=== PATIENT | female | born 1950 | race Caucasian/White ===

== ENCOUNTER → 2017-05-21 10:42 | Outpatient (CLI) | payer MEDICARE, OTHER, SELFPAY ==
--- NOTE | 2017-05-21 11:03 | HPBI_ITS ---
MAMMOGRAPHY - BILATERAL SCREENING REASON FOR EXAM: Female, 66 years old. Routine annual screening examination. PERTINENT HISTORY: Non-contributory. TECHNIQUE: Digital bilateral breast shine (3D mammographic acquisition) in the CC and MLO projections. 2-D mediolateral oblique (MLO) and craniocaudad (CC) views of both breasts were obtained. CAD: Full Field Digital Mammography with Computer Added Detection was performed. COMPARISON: Comparison is made with prior examination dated May 20, 2016 and May 08, 2014. FINDINGS: Breast Composition: The breasts are almost entirely fatty. There are no dominant masses or suspicious calcifications. No other significant abnormalities are identified. There has been no significant change since the prior study. HPBI/SCREENING MAMM (CAD), BILAT IMPRESSION: Stable bilateral screening mammogram. Yearly follow-up mammogram recommended. (A) ASSESSMENT CATEGORY: BIRADS Category 1: Negative. A letter regarding these results will be sent to the patient by the facility within 30 days. Approximately 10% of breast cancers are not detected by mammography. A normal mammogram should not delay biopsy of a clinically suspicious abnormality. [id number] Electronically Signed: Serafin Braun MD at 13:06 EDT Tel [phone], Service support ,
== END ==
PROVIDERS: Family Provider Family Medicine; PCP Family Medicine; Visit Provider Family Medicine
DX: Z12.31 Encounter for screening mammogram for malignant neoplasm of breast (principal)
CPT/HCPCS: 77063; 77067

== ENCOUNTER → 2017-07-13 10:34 | Outpatient (CLI) | payer MEDICARE, OTHER, SELFPAY ==
--- NOTE | 2017-07-13 10:41 | RAD_ITS ---
STUDY: X-RAY - RIGHT CALCANEUS REASON FOR EXAM: Female, 67 years old. lump on the back of right heel, painful TECHNIQUE: 2 view(s) of the calcaneus were obtained. COMPARISON: None. FINDINGS: Normal visualized calcaneus. There is a plantar calcaneal spur. RAD/Calcaneus min 2 Views IMPRESSION: There is a calcaneal spur. Electronically Signed: Gerardo Rivas MD at 19:34 EDT , Service support ,
== END ==
PROVIDERS: Family Provider Family Medicine; PCP Family Medicine; Visit Provider Family Medicine
DX: M76.61 Achilles tendinitis, right leg (principal)
CPT/HCPCS: 73650

== ENCOUNTER 2017-08-13 13:00 | Outpatient (RCR) | payer MEDICARE, OTHER, SELFPAY ==
--- NOTE | 2017-07-23 15:41 | HP.PTEVAL_ITS ---
Patient's Visit Information SHANIQUA KRUEGER is a 67 year old F referred to Physical Therapy by Vamshi Nguyễn with a diagnosis of RIGHT ACHILLES TENDONITIS/OSIS. Date of Evaluation: 07/23/17 Physical Therapist: Samantha Nieto - Visit Plan Frequency: 2-3x /Week Duration: 4-6 Weeks Plan: GOES BY [facility]. CONSIDER DISCUSSING DRY NEEDLING WITH PATIENT AND CONSIDER DRY NEEDLING CONSULT. TRY RIGHT ANKLE US. GAIT TRAINING - CANE IF NEEDED. POSTURE CORRECTION/STRENGTHENING, INSTRUCTION IN APPROPRIATE BODY MECHANICS AND ACTIVITY MODIFICATIONS. CORE STRENGTH AND STABILITY TRAINING. SONAL LE ROM, STRETCHING AND STRENGTHENING. HEP INSTRUCTION. - Subjective Subjective: Diagnosis: RIGHT ACHILLES TENDONITIS/OSIS. Work/Leisure: RETIRED. Disability: NO. Present symptoms: RIGHT HEEL/ACHILLES TENDON AREA LOCALIZED PAIN. PATIENT DENIES FOOT AND LEG PAIN. Present since: OVER 6 MONTHS. Pain Scale: Worst - 6/10 Least - 1/10. Currently: 0/10. Commenced as a result of: NO APPARENT REASON. Symptoms at onset: SAME. Worse : STEPS, AFTER WALKING FOR EX, PROLONGED HOUSEWORK, PROLONGED COOKING IN KITCHEN. Better: SITTING AND ELEVATION. Disturbed sleep: NO. Previous history/Previous treatment: NONE. UNREMARKABLE EXCEPT PATIENT RECALLS MAYBE HAVING PLANTAR FASCITIS IN THE PAST. SHE SAW DR. CANO AND WAS GIVEN STRETCHES AND SHE GOT ORTHOTICS. NO LONGER WEARS THE ORTHOTICS. THIS WAS A FEW YEARS AGO AND THE PAIN SEEMED TO GO AWAY. SHE REALLY ISN'T EVEN SURE IF IT WAS HER RIGHT OR LEFT FOOT. PATIENT REPORTS SHE HAS SEEN DR. NGUYỄN TWICE FOR THIS SO FAR. HE INITIALLY GAVE HER AN AIR BOOT THAT SHE STATES SHE ONLY WORE TO GO [employer] OR LIKEWISE. SHE DID NOT WEAR IT AROUND THE HOUSE ADVISED BY DR. NGUYỄN. SHE REPORTS SHE WORE IT TO [employer] THE OTHER DAY BUT SHE DID NOT WEAR IT HERE TODAY. SHE STATES THAT ABOUT 2 WEEKS AGO WHEN HER ACHILLES REALLY SWELLED UP THE BOOT SEEMED TO HELP THE SWELLING GO DOWN. Gait: PATIENT REPORTS THAT SHE SEEMS TO LIMP ALL THE TIME NOW ON THE RIGHT FOOT BECAUSE SHE FEELS IT WITH EVERY STEP. Accidents: NO. Unexplained weight loss: NO. Imaging: RECENT RIGHT FOOT X-RAYS: FINDINGS: Normal visualized calcaneus. There is a plantar calcaneal spur. PMH/Recent major surgery: PULMONARY FIBROSIS. BLADDER DYSFUNCTION. HTN. HYPOTHYROIDISM. OTHER: PATIENT IS LEAVING FOR A TRIP IN ONE MONTH. GOING TO [place]. - Objective Sitting/Standing Posture: POOR. Lordosis: REDUCED. Lateral shift: NO. Relevant shift: N/A. Active Correction of posture: NE. Other Observations: INDEP GAIT INTO PT WITHOUT ANY ASSISTIVE DEVICES WITH A MILD LIMP ON THE RIGHT LE. Motor deficit: SONAL LE STRENGTH IS WFL. PATIENT IS EVEN ABLE TO DO SONAL HEEL RAISING X 3 BUT PROVOKES MILD RIGHT ACHILLES PAIN. Sensory deficit: SONAL LE LIGHT TOUCH SENSATION IS INTACT AND SYMMETRICAL. ROM deficit: RIGHT ANKLE DORSIFLEXION MILDLY LIMITED AND PAIN AT THE END OF THE AVIAILABLE RANGE. Lumbar mvmt loss: flex - MOD. ext - TABITHA. R SG - MOD. L SG - MOD. PATIENT REPORTS STIFFNESS BUT NO PAIN IN BACK OR LE'S WITH TESTING. Core strength: POOR. Palpation: TENDERNESS WITH LIGHT PALPATION ALONG SWOLLEN AREA OF ACHILLES TENDON RIGHT NEAR INSERTION. - Goals Goal 1:: DECREASE C/O RIGHT ACHILLES PAIN Goal Time Frame: 4-6 Weeks Goal 2:: IMPROVE STANDING, WALKING, STAIR CLIMBING, ADL AND RECREATIONAL FUNCTION Goal Time Frame: 4-6 Weeks Goal 3:: INDEP HEP Goal Time Frame: 4-6 Weeks - Rehabilitation Potential Rehabilitation Potential: Fair - Anticipated Interventions Patient/Client Instruction: Educate patient on: Condition, Plan of Care, Risk Factors, Benefits of Fitness Program For the Purpose of:: To improve self management Therapeutic Exercise to Include: Strength training, Body mechanics, Postural training, Flexibilty training, Passive ROM, Active ROM For the Purpose of:: To decrease pain, To improve ability of physical actions for home/community/work/leisure, To improve gait and locomotor functions Manual Therapy Techniques to Include: Functional dry needling, Soft tissue mobilization For the Purpose of:: To decrease pain, To increase ROM Cryotherapy (ice pack, ice massage): Yes Thermo therapy (hot pack): Yes Ultrasound (thermal/non thermal): Yes For the Purpose of:: To decrease pain, To decrease swelling/inflammation, To increase ROM Thank you for the opportunity to evaluate your patient. For Medicare and Medicare HMO plans, please review the plan of care and approve it. It will need to be FAXED BACK to us at [phone] for Medicare purposes. Please let me know if there are questions or concerns regarding this plan of care. Physician Signature: Date:
--- NOTE | 2017-08-13 13:00 | DT_ITS ---
This patient was seen during an EMR downtime August 09, 2017 - August 16, 2017. This patient may have a combination of paper and electronic documentation or all paper documentation. All documentation is viewable within the e-chart portion of [facility] for each patient visit.
--- NOTE | 2017-09-05 12:05 | HP.PTDCSUM ---
HP - PT D/C Summary It has been my pleasure to treat SHANIQUA KRUEGER under orders from Vamshi Ngyuễn, for the diagnosis of RIGHT ACHILLES TENDONITIS/OSIS for a total of 8 visit(s). Discharge Date: 08/13/17 Please see the following information for a summary of their discharge status. - Subjective Subjective: PATIENT REPORTS THE US REALLY HELPS A LOT. LEAVING NEXT WEDNESDAY FOR VACATION. USED NEWLY PRESCRIBED ANTI-INFLAM CREAM (DR. NGUYỄN) ONCE AND SHE DIDN'T NOTICE A DIFFERENCE BUT WILL KEEP TRYING. PT REPORTS EX'S LAST SESSION HELPED A LOT. - Pain R achilles Pain Intensity (Out of 10): 0 - Overall Improvement % Improvement: 75 - Objective Objective/Function: MILD EDEMA AND TENDERNESS PRESENT NEAR RIGHT ACHILLES INSERTION. SINGLE LEG HEEL RAISE STILL PAIN LIMITED. =8 DEG RIGHT ANKLE ACTIVE DORSIFLEXION. PATIENT IS INDEP WITH HEP. LEFS HAS IMPROVED FROM 47 TO 67. Due to electronic downtime procedure, the information from August 09 2017 through August 15 2017 was electronically scanned into the medical record - Goals Goal 1:: DECREASE C/O RIGHT ACHILLES PAIN Goal Progress: Goal Met Goal 2:: IMPROVE STANDING, WALKING, STAIR CLIMBING, ADL AND RECREATIONAL FUNCTION Goal Progress: Goal Met Goal 3:: INDEP HEP Goal Progress: Goal Met - Plan Plan: D/C AT PATIENTS REQUEST - LEAVING FOR VACATION. WILL FOLLOW UP WITH DR. NGUYỄN UPON RETURN NEEDED. - D/C Information If there are questions or concerns regarding this patient's physical therapy, please feel free to call me at [phone]. Thank you for the referral of this patient. Sincerely, Samantha Nieto
== END 2017-08-13 19:00 | disposition home or self-care (01) ==
LOC: PT 13:00
PROVIDERS: Family Provider Family Medicine; PCP Family Medicine; Visit Provider Family Medicine
DX: M76.61 Achilles tendinitis, right leg (principal)
CPT/HCPCS: 97035; 97110; 97140; 97162; 97530

== ENCOUNTER → 2018-01-17 07:19 | Outpatient (CLI) | payer MEDICARE, OTHER, SELFPAY ==
[2018-01-17 10:33] LABS: Hemoglobin 14.7 g/dl (12.0-15.0); Mean Corp Hgb Conc 32.7 g/gl (32-36); Mean Corpuscular Hgb 28.8 pg (27.0-32.0); Mean Corpuscular Volume 88.1 fL (81-99); Mean Platelet Vol. 12.8 fl (6.2-12.0); Platelet Count 179 K/mm3 (150-450); RBC Distribution Width CV 13.5 % (11.6-14.6); RBC Distribution Width SD 43.3 fl (35.1-43.9); Red Blood Count 5.11 M/mm3 (4.2-5.4); White Blood Count 9.7 K/mm3 (4.4-11.0)
[2018-01-17 10:41] LABS: Scan Indicated on CBC? Y/N NO
[2018-01-17 10:46] LABS: Vitamin D,25 Hydroxy 27.5 ng/mL (29.95-100.01)
[2018-01-17 10:48] LABS: Erythrocyte Sedimentation Rate 10 mm/hr (0-30)
[2018-01-17 10:50] LABS: BUN 22 mg/dL (7-18); Creatinine, Serum 1.26 mg/dL (0.55-1.02); EST Glomerular Filtration Rate 45 mL/min (>60); Glucose 88 mg/dL (74-106)
[2018-01-17 10:51] LABS: ALB/GLOB Ratio 0.9 RATIO (0.9-2.4); AST(SGOT) 12 U/L (15-37); Alanine Aminotransfer ALT/SGPT 26 U/L (13-56); Albumin, Serum 3.5 g/dL (3.2-5.0); Alkaline Phosphatase 103 U/L (45-117); Anion Gap 9 (5-15); BUN/Creat Ratio 17.5 RATIO (10-20); Calcium,Total 8.7 mg/dL (8.5-10.1); Chloride 102 mmol/L (98-107); Cholesterol 171 mg/dL (200); Est Glom Filt Rate - Afr Amer 54 mL/min (>60); Globulin 3.8 g/dL (2.2-4.2); High Density Lipoprotein 47 mg/dL; Potassium 3.4 mmol/L (3.5-5.1); Protein, Total 7.3 g/dL (6.4-8.2); Rheumatoid Factor < 10.0 IU/mL (<15); Sodium Level 142 mmol/L (136-145); T4 Free Direct 1.11 ng/dL (0.76-1.46); Thyroid Stim Hormone (TSH) 2.51 uIU/mL (0.358-3.74); Triglycerides 131 mg/dL; Very Low Density Lipoprotein 26 mg/dL (5-40)
[2018-01-19 10:19] LABS: ANTINUCLEAR ANTIBODIES DIRECT Negative (Negative)
== END ==
PROVIDERS: Family Provider Family Medicine; PCP Family Medicine; Referring Provider Family Medicine; Visit Provider Family Medicine
DX: I10 Essential (primary) hypertension (principal); M25.50 Pain in unspecified joint; E03.9 Hypothyroidism, unspecified; E55.9 Vitamin D deficiency, unspecified
CPT/HCPCS: 36415; 80053; 80061; 82306; 84439; 84443; 85027; 85652; 86038; 86140; 86431

== ENCOUNTER → 2018-10-04 15:56 | Outpatient (CLI) | payer MEDICARE, OTHER, SELFPAY ==
--- NOTE | 2018-10-04 16:03 | RAD_ITS ---
STUDY: X-RAY CHEST REASON FOR EXAM: Female, 68 years old. TECHNIQUE: COMPARISON: None. FINDINGS: There is a background of chronic interstitial changes especially in the right lung base. No acute findings in the lungs. The heart is normal in size. Degenerative changes of the thoracic spine. Normal visualized ribs, clavicles, and shoulders. There is no demonstrated abnormality of the visualized soft tissue structures of the upper abdomen. RAD/Chest PA and Lateral IMPRESSION: A background of chronic interstitial changes especially in the right lung base. No acute findings in the lungs Electronically Signed: Dakota Alfaro MD at 5:10 EDT Tel , Service support ,
== END ==
PROVIDERS: Family Provider Family Medicine; PCP Family Medicine; Referring Provider Family Medicine; Visit Provider Family Medicine
DX: R11.10 Vomiting, unspecified (principal)
CPT/HCPCS: 71046

== ENCOUNTER → 2018-10-19 16:04 | Outpatient (CLI) | payer MEDICARE, OTHER, SELFPAY ==
[2018-10-19 17:42] LABS: Absolute Neutrophil Count 5.7 X10^3/uL (2.0-7.7); Basophil# 0.08 X10^3/uL; Eosinophil# 0.41 X10^3/uL; Eosinophils% 4.9 % (0-5); Hematocrit 44.1 % (37-47); Hemoglobin 14.4 g/dL (12.0-15.0); Mean Corp Hgb Conc 32.7 g/dL (32-36); Mean Corpuscular Hgb 28.9 pg (27.0-32.0); Mean Corpuscular Volume 88.4 fL (81-99); Mean Platelet Vol. 13.3 fl (6.2-12.0); Monocyte# 0.55 X10^3/uL; Monocyte% 6.5 % (0-10); NRBC Flagged by Analyzer 0 % (0-5); Neutrophil # 5.71 X10^3/uL (2.7-7.7); Neutrophil % 67.9 % (47-70); Platelet Count 159 K/mm3 (150-450); RBC Distribution Width CV 13.1 % (11.6-14.6); RBC Distribution Width SD 42.5 fl (35.1-43.9); Red Blood Count 4.99 M/mm3 (4.2-5.4); White Blood Count 8.4 K/mm3 (4.4-11.0)
[2018-10-19 17:51] LABS: ALB/GLOB Ratio 0.9 RATIO (0.9-2.4); AST(SGOT) 13 U/L (15-37); Alanine Aminotransfer ALT/SGPT 22 U/L (13-56); Albumin, Serum 3.2 g/dL (3.2-5.0); Alkaline Phosphatase 92 U/L (45-117); Anion Gap 7 (5-15); BUN 20 mg/dL (7-18); BUN/Creat Ratio 19.8 RATIO (10-20); Chloride 105 mmol/L (98-107); Creatinine, Serum 1.01 mg/dL (0.55-1.02); EST Glomerular Filtration Rate 58 mL/min (>60); Est Glom Filt Rate - Afr Amer 70 mL/min (>60); Globulin 3.6 g/dL (2.2-4.2); Glucose 107 mg/dL (74-106); Potassium 3.9 mmol/L (3.5-5.1); Protein, Total 6.8 g/dL (6.4-8.2); Sodium Level 141 mmol/L (136-145)
[2018-10-19 19:21] LABS: Differential Comment SCANNED; Platelet Morphology LARGE; Red Cell Morphology NORM C+C NORMAL (NORM C&C)
[2018-10-19 19:22] LABS: Platelet Estimate ADEQUATE (ADEQ)
[2018-10-23 11:57] LABS: ANTINUCLEAR ANTIBODIES DIRECT Negative (Negative)
== END ==
PROVIDERS: Family Provider Family Medicine; PCP Family Medicine; Referring Provider Family Medicine; Visit Provider Family Medicine
DX: R79.82 Elevated C-reactive protein (CRP) (principal); E03.9 Hypothyroidism, unspecified
CPT/HCPCS: 36415; 80053; 84403; 85025; 86038; 86140

== ENCOUNTER → 2018-12-13 15:22 | Outpatient (CLI) | payer MEDICARE, OTHER, SELFPAY ==
--- NOTE | 2018-12-13 15:26 | RAD_ITS ---
STUDY: X-RAY CHEST REASON FOR EXAM: Female, 68 years old. Cough TECHNIQUE: PA and lateral views of the chest. COMPARISON: Previous study of 10/04/2018 FINDINGS: There are mild chronic fibrotic changes of the lung bases. There is no demonstrated pleural abnormality. Normal size heart. Normal mediastinum and donald. Normal visualized pulmonary arteries. Normal visualized aortic arch and descending thoracic aorta. There are diffuse degenerative changes of the visualized thoracic spine. Normal visualized ribs, clavicles, and shoulders. There is no demonstrated abnormality of the visualized soft tissue structures of the upper abdomen. RAD/Chest PA and Lateral IMPRESSION: Mild chronic fibrotic changes of the lung bases. Degenerative changes of the thoracic spine. No acute cardiopulmonary disease process is seen. Chest findings are stable in the interval. Electronically Signed: Tanmay Payne MD at 17:59 EDT , Service support ,
[2018-12-13 17:47] LABS: Absolute Neutrophil Count 5.3 X10^3/uL (2.0-7.7); Basophil# 0.07 X10^3/uL; Basophil% 0.9 % (0-1); Eosinophil# 0.53 X10^3/uL; Eosinophils% 6.9 % (0-5); Hematocrit 41.2 % (37-47); Hemoglobin 13.4 g/dL (12.0-15.0); Lymphocyte % 15.7 % (19-41); Mean Corp Hgb Conc 32.5 g/dL (32-36); Mean Corpuscular Hgb 28.9 pg (27.0-32.0); Mean Corpuscular Volume 88.8 fL (81-99); Mean Platelet Vol. 12.6 fl (6.2-12.0); Monocyte# 0.47 X10^3/uL; Monocyte% 6.1 % (0-10); NRBC Flagged by Analyzer 0 % (0-5); Neutrophil # 5.33 X10^3/uL (2.7-7.7); Neutrophil % 69.7 % (47-70); Platelet Count 172 K/mm3 (150-450); RBC Distribution Width CV 13.3 % (11.6-14.6); RBC Distribution Width SD 43.3 fl (35.1-43.9); Red Blood Count 4.64 M/mm3 (4.2-5.4); White Blood Count 7.7 K/mm3 (4.4-11.0)
[2018-12-13 17:58] LABS: BNP,B-Type NATRIURETIC PEPTIDE 179.2 pg/mL (0-100)
[2018-12-13 18:05] LABS: ALB/GLOB Ratio 0.9 RATIO (0.9-2.4); AST(SGOT) 17 U/L (15-37); Alanine Aminotransfer ALT/SGPT 29 U/L (13-56); Albumin, Serum 3.3 g/dL (3.2-5.0); Alkaline Phosphatase 101 U/L (45-117); Anion Gap 5 (5-15); BUN 20 mg/dL (7-18); BUN/Creat Ratio 18.5 RATIO (10-20); Chloride 103 mmol/L (98-107); Creatinine, Serum 1.08 mg/dL (0.55-1.02); EST Glomerular Filtration Rate 53 mL/min (>60); Est Glom Filt Rate - Afr Amer 64 mL/min (>60); Ferritin 220 ng/mL (8-252); Globulin 3.6 g/dL (2.2-4.2); Glucose 78 mg/dL (74-106); Iron 41 ug/dL (50-170); Potassium 3.6 mmol/L (3.5-5.1); Protein, Total 6.9 g/dL (6.4-8.2); Sodium Level 139 mmol/L (136-145); Thyroid Stim Hormone (TSH) 2.37 uIU/mL (0.358-3.74)
[2018-12-13 18:33] LABS: Erythrocyte Sedimentation Rate 27 mm/hr (0-30)
== END ==
PROVIDERS: Family Provider Family Medicine; PCP Family Medicine; Referring Provider Family Medicine; Visit Provider Family Medicine
DX: R05 Cough (principal); R06.02 Shortness of breath; I12.9 Hypertensive chronic kidney disease with stage 1 through stage 4 chronic kidney disease, or unspecified chronic kidney disease; N18.9 Chronic kidney disease, unspecified; E03.9 Hypothyroidism, unspecified
CPT/HCPCS: 36415; 71046; 80053; 82306; 82607; 82728; 83540; 83880; 84443; 85025; 85652

== ENCOUNTER → 2018-12-20 14:29 | Outpatient (CLI) | payer MEDICARE, OTHER, SELFPAY ==
[2018-12-20 16:24] LABS: Vitamin B12 381 pg/mL (211-911); Vitamin D,25 Hydroxy 26.2 ng/mL (29.95-100.01)
== END ==
PROVIDERS: Family Provider Family Medicine; PCP Family Medicine; Referring Provider Family Medicine; Visit Provider Family Medicine
DX: R53.83 Other fatigue (principal); E55.9 Vitamin D deficiency, unspecified
CPT/HCPCS: 82306; 82607

== ENCOUNTER → 2018-12-20 15:00 | Outpatient (CLI) | payer MEDICARE, OTHER, SELFPAY ==
--- NOTE | 2018-12-20 15:03 | BI_ITS ---
MAMMOGRAPHY - BILATERAL SCREENING REASON FOR EXAM: Female, 68 years old. Routine annual screening examination. PERTINENT HISTORY: Aunt with breast cancer. TECHNIQUE: Digital bilateral breast aliya (3D mammographic acquisition) in the CC and MLO projections. 2-D mediolateral oblique (MLO) and craniocaudad (CC) views of both breasts were obtained. CAD: Full Field Digital Mammography with Computer Added Detection was performed. COMPARISON: Comparison is made with prior studies dated May 21, 2017 and May 20, 2016. FINDINGS: Breast Composition: The breasts are almost entirely fatty. There are no dominant masses or suspicious calcifications. No other significant abnormalities are identified. There has been no significant change since the prior study. BI/SCREEN MAMM (CAD) W/ALIYA BILAT IMPRESSION: Stable bilateral screening mammogram. Yearly follow-up mammogram recommended. (A) ASSESSMENT CATEGORY: BIRADS Category 1: Negative. A letter regarding these results will be sent to the patient by the facility within 30 days. Approximately 10% of breast cancers are not detected by mammography. A normal mammogram should not delay biopsy of a clinically suspicious abnormality. [id number] Electronically Signed: Serafin Braun, at 8:37 EDT , Service support ,
--- NOTE | 2018-12-20 15:07 | BD_ITS ---
STUDY: DUAL ENERGY X-RAY ABSORPTIOMETRY / DXA REASON FOR EXAM: Female, 68 years old. Early menopause. No loss of height. TECHNIQUE: Bone Mineral Density (BMD) measurements of lumbar spine and bilateral hips were obtained. COMPARISON: Comparison is made with prior study dated May 08, 2014. FINDINGS: Lumbar Spine (L1-L4): g/cm2 (1.583) / T-score (3.5) / Z-score (5.2) Findings are suggestive of normal bone density with a low fracture risk. Left Femur Total: g/cm2 (1.274) / T-score (2.1) / Z-score (3.6) Left Femoral Neck: g/cm2 (1.063) / T-score (0.2) / Z-score (1.9) Right Femur Total: g/cm2 (1.283) / T-score (2.2) / Z-score (3.7) Right Femoral Neck: g/cm2 (1.061) / T-score (0.2) / Z-score (1.9) The T-Scores on the most recent prior examination were: Lumbar Spine (L1-L4): There has been improvement of bone density since the previous examination. Left Femur Total: which represents a worsening of 3%. Right Femur Total: which represents a worsening of 1.5%. BD/Dexa Bone Density Study IMPRESSION: The patient is considered normal as outlined below according to World Malcolm Organization (WHO) criteria with a low fracture risk. There has been worsening of bone density since the previous examination. Reference Information: The T-score is the number of standard deviations above or below the standard which is normal for young adults at their peak bone mineral density. The World Health Organization (WHO) interprets the T-scores as follows: Above -1 Normal bone density Between -1 and -2.5 Osteopenia Equal to / or below -2.5 Osteoporosis As a practical clinical guideline, osteopenia may be graded as follows: Mild -1 through -1.5 Moderate -1.6 through -2.0 Severe -2.1 through -2.4 The Z-score is the number of standard deviations above or below age-matched controls. A Z-score of less than -1.5 would be considered abnormal. References: 1. NIH Osteoporosis and Related Bone Diseases http://www.osteo.org 2. International Society for Clinical Densitometry http://www.iscd.org 3. National Osteoporosis Foundation http://www.nof.org Electronically Signed: Serafin Braun, at 10:38 EDT , Service support ,
== END ==
PROVIDERS: Family Provider Family Medicine; PCP Family Medicine; Referring Provider Family Medicine; Visit Provider Family Medicine
DX: Z12.31 Encounter for screening mammogram for malignant neoplasm of breast (principal); Z78.0 Asymptomatic menopausal state; R53.83 Other fatigue; E55.9 Vitamin D deficiency, unspecified
CPT/HCPCS: 77063; 77067; 77080; 82306; 82607

== ENCOUNTER → 2019-01-03 | Outpatient (CLI) | payer MEDICARE, OTHER, SELFPAY ==
--- NOTE | 2019-01-03 07:27 | CT_ITS ---
STUDY: CT CHEST WITH CONTRAST REASON FOR EXAM: Female, 68 years old. Dyspnea RADIATION DOSAGE (If Supplied By Facility): CTDIvol = ( 13.38 ) mGy, DLP = ( 584.44 ) mGycm TECHNIQUE: Transaxial imaging was performed following intravenous administration of IV Isovue 250 100. Individualized dose optimization techniques were used for this CT. COMPARISON: None. FINDINGS: The lungs are mildly hyperaerated with by basilar mild fibrosis and peripheral blebs. There is no demonstrated pleural abnormality. Normal heart and pericardium. Normal mediastinum. Normal hilar regions. Normal enhanced pulmonary arteries. Normal aorta arch and descending thoracic aorta. Degenerative vertebral changes. Fatty changes in the liver with up to 3.1 cm cysts. Small hiatal hernia. CT/Chest WITH Contrast IMPRESSION: Chronic changes of the lung bases with fibrotic changes and blebs. Fatty hepatic changes. Hepatic cysts. Electronically Signed: John Hagen DO at 19:39 EDT Tel [phone], Service support ,
--- NOTE | 2019-01-03 08:42 | ECHOD_ITS ---
Reason For Study: Dyspnea Procedure This was a 2D Doppler, Color Flow transthoracic echocardiogram. The exam was of adequate technical quality. Exam performed in department. Left Ventricle Normal LV size. Left ventricular systolic function is normal. The estimated ejection fraction is 65 %. There is evidence of diastolic dysfunction. No regional wall motion abnormalities noted. Right Ventricle Normal RV size. Normal systolic function. Atria The left atrium is moderately enlarged. Normal right atrium. No doppler evidence for ASD. Mitral Valve There is no mitral annular calcification. Normal mitral valve. Mild (1+) mitral valve insufficiency. Tricuspid Valve Normal tricuspid valve. Trivial tricuspid valve insufficiency. Right ventricular systolic pressure estimated to be 38 mmHg. Aortic Valve Trisinus/trileaflet aortic valve. Mild diffuse aortic valve thickening. Pulmonic Valve The pulmonic valve is not well visualized. Great Vessels Normal sized aortic root. Pericardium/Pleural No pericardial effusion. MMode/2D Measurements & Calculations LVIDd: 4.3 cm IVSd: 0.93 cm Ao root diam: 3.1 cm LVIDs: 2.5 cm LVPWd: 1.1 cm LA dimension: 4.2 cm RVDd: 3.8 cm FS: 40.4 % LAV(MOD-bp): 64.5 ml LA A4 area: 21.9 cm2 RA A4 area: 12.3 cm2 LAV(MOD-bp) Indexed: 33.5 ml/m2 LAV(MOD-sp2): 60.9 ml LAV(MOD-sp4): 68.6 ml Time Measurements MV dec time: 0.26 sec Doppler Measurements & Calculations MV E max david: 54.4 cm/sec Lat Peak E' David: 8.0 cm/sec Med Peak E' David: 6.8 cm/sec MV A max david: 66.3 cm/sec E/E' lat: 6.8 E/E' med: 8.0 MV E/A: 0.82 MV V2 max: 69.8 cm/sec MV P1/2t max david: 59.3 cm/sec Ao V2 max: 99.7 cm/sec MV max P.0 mmHg MV P1/2t: 128.8 msec Ao max P.0 mmHg MV V2 mean: 42.1 cm/sec MV dec slope: 134.8 cm/sec2 MV mean P.80 mmHg MVA(P1/2t): 1.7 cm2 MV V2 VTI: 23.3 cm LV V1 max: 75.4 cm/sec MR max david: 601.8 cm/sec PA V2 max: 72.5 cm/sec LV V1 max P.3 mmHg MR max P.9 mmHg MR mean david: 478.2 cm/sec MR mean P.9 mmHg MR VTI: 240.7 cm TR max david: 296.6 cm/sec TR max P.2 mmHg Interpretation Summary Left ventricular systolic function is normal. The estimated ejection fraction is 65 %. The left atrium is moderately enlarged. Mild (1+) mitral valve insufficiency. Trivial tricuspid valve insufficiency. Mild diffuse aortic valve thickening. Right ventricular systolic pressure estimated to be 38 mmHg c/w pulmonary hypertension. There is evidence of diastolic dysfunction. Ordering Physician: Cecil Arriola Referring Physician: Cecil Arriola Performed By: Houston Castillo RCS
--- NOTE | 2019-01-03 15:08 | PFTCOMP_ITS ---
COMPLETE PULMONARY FUNCTION TEST INTERPRETATION Brief HPI: Patient is a 68 year old female, currently under the care of Dr. Arriola, who presents to [facility] for complete pulmonary function tests secondary to diagnosis of dyspnea. Respiratory therapist reports good effort and reproducible results. Interpretation: Forced expiration spirometry shows no large airways obstructive ventilatory defect with an FEV1 of 102% predicted. There is no significant bronchodilator response by strict ATS criteria. Spirograms are of good quality and plateau normally. The respiratory flow volume loop shows decreased expiratory flow rates at all lung volumes consistent with airway obstruction. Lung volumes by body plethysmography show a normal total lung capacity at 4.03 L, 91% predicted. All other lung volumes are within normal limits. Diffusion capacity by carbon monoxide is decreased at 66% predicted. The airway resistance is normal. Compared to previous pulmonary function tests from 10/07/2010, there is been a significant reduction in DLCO by 18%. Impression: Isolated reduction in diffusion capacity consistent with a pulmonary vascular disorder. This has worsened over the last 8 years.
== END | disposition home or self-care (01) ==
LOC: CT 07:24
PROVIDERS: Family Provider Family Medicine; PCP Family Medicine; Referring Provider Family Medicine; Visit Provider Family Medicine
DX: R06.00 Dyspnea, unspecified (principal)
CPT/HCPCS: 71260; 93306; 94060; 94726; 94729; Q9967

== ENCOUNTER → 2019-02-03 12:18 | Outpatient (CLI) | payer MEDICARE, OTHER, SELFPAY ==
[2019-02-03 12:46] VITALS: PULSE 114; PULSE 115; PULSE 118; PULSE 68; PULSE 71; PULSE 84; PULSE 93; PULSE 94; O2SAT 92; O2SAT 93; O2SAT 94; O2SAT 95; O2SAT 96; O2SAT 97
--- NOTE | 2019-02-04 09:21 | PCM.PSN.6M ---
PSN 6 Minute Walk Test - 6 Minute Walk Test 6 Minute Walk Test: 6 Minute Walk Test PSN:6-Minute Walk Test Start: 02/03/19 12:46 Freq: Status: Active Protocol: RESP.6MINW Document 02/03/19 12:46 [facility] (Rec: 02/03/19 12:50 [facility] [id number]) 6 Minute Walk Test Date Performed 02/03/19 Time Performed 12:30 Height 5 ft 2 in Weight: 93.894 kg Weight in Pounds 207.[address]: Rudolph Gates Assistive device used: None Pre-test Oxygen Delivery Method Room Air Pulse Ox (%) 97 Pulse Rate (60-100 beats/min) 68 Dyspnea Ty Scale (0-10) 0 1st minute Oxygen Delivery Method Room Air Pulse Ox (%) 96 Pulse Rate (60-100 beats/min) 84 Dyspnea Ty Scale (0-10) 0 2nd minute Oxygen Delivery Method Room Air Pulse Ox (%) 95 Pulse Rate (60-100 beats/min) 94 Dyspnea Ty Scale (0-10) 1 3rd minute Oxygen Delivery Method Room Air Pulse Ox (%) 94 Pulse Rate (60-100 beats/min) 93 Dyspnea Ty Scale (0-10) 1 4th minute Oxygen Delivery Method Room Air Pulse Ox (%) 94 Pulse Rate (60-100 beats/min) 114 H Dyspnea Ty Scale (0-10) 2 Reported Symptoms Increased Work of Breathing 5th minute Oxygen Delivery Method Room Air Pulse Ox (%) 93 Pulse Rate (60-100 beats/min) 115 H Dyspnea Ty Scale (0-10) 2 Reported Symptoms Increased Work of Breathing 6th minute Oxygen Delivery Method Room Air Pulse Ox (%) 92 Pulse Rate (60-100 beats/min) 118 H Dyspnea Ty Scale (0-10) 2 Reported Symptoms Increased Work of Breathing Post-test Oxygen Delivery Method Room Air Pulse Ox (%) 97 Pulse Rate (60-100 beats/min) 71 Dyspnea Ty Scale (0-10) 0 Full Laps Walked 22 Partial Lap, Number of Tiles Walked 16 Total Distance Walked (ft) 1314 - Interpretation Interpretation: Patient was able to ambulate 1314 feet over the course of 6 minutes on room air with no assistive devices or breaks. The patient did not have any significant desaturation, but did experience tachycardia to 118 bpm. These findings are consistent with deconditioning. - Recommendations Recommendations: No supplemental oxygen is indicated at this time
== END ==
PROVIDERS: Family Provider Family Medicine; PCP Family Medicine; Referring Provider Internal Medicine Critical Care Medicine; Visit Provider Internal Medicine Critical Care Medicine
DX: R06.00 Dyspnea, unspecified (principal)
CPT/HCPCS: 94618

== ENCOUNTER → 2019-04-07 12:21 | Outpatient (CLI) | payer MEDICARE, OTHER, SELFPAY ==
[2019-04-07 14:14] LABS: Rheumatoid Factor < 10.0 IU/mL (<15)
[2019-04-10 21:07] LABS: ANTINUCLEAR ANTIBODIES DIRECT Negative (Negative)
[2019-04-11 16:07] LABS: Cytoplasmic Ab (C-ANCA) <1:20 titer (Neg:<1:20)
[2019-04-12 14:04] LABS: CCP IgG Antibodies 8 units (0-19); Perinuclear Ab (P-ANCA) <1:20 titer (Neg:<1:20)
== END ==
PROVIDERS: PCP Family Medicine; Referring Provider Internal Medicine Critical Care Medicine; Visit Provider Internal Medicine Critical Care Medicine
DX: J84.9 Interstitial pulmonary disease, unspecified (principal)
CPT/HCPCS: 36415; 86038; 86200; 86225; 86235; 86256; 86431

== ENCOUNTER → 2019-05-09 17:58 | Outpatient (CLI) | payer MEDICARE, OTHER, SELFPAY ==
[2019-04-13 12:38] VITALS: BMI 37.8
== END ==
PROVIDERS: PCP Family Medicine; Referring Provider Family Medicine; Visit Provider Family Medicine
DX: N39.0 Urinary tract infection, site not specified (principal)
CPT/HCPCS: 87086; 87088

== ENCOUNTER → 2019-08-03 16:52 | Outpatient (CLI) | payer MEDICARE, OTHER, SELFPAY ==
[2019-04-13 12:38] VITALS: BMI 37.8
--- NOTE | 2019-08-03 16:54 | RAD_ITS ---
STUDY: X-RAY CHEST REASON FOR EXAM: Female, 69 years old. PLEURISY TECHNIQUE: PA and lateral views of the chest. COMPARISON: 12/13/2018 FINDINGS: Chronic interstitial changes in both lung chand without a superimposed acute pulmonary process. There is no demonstrated pleural abnormality. Normal size heart. Normal mediastinum and donald. Normal visualized pulmonary arteries. Normal visualized aortic arch and descending thoracic aorta. There are diffuse degenerative changes of the visualized thoracic spine. Normal visualized ribs, clavicles, and shoulders. There is no demonstrated abnormality of the visualized soft tissue structures of the upper abdomen. RAD/Chest PA and Lateral IMPRESSION: Degenerative changes, as described above. No demonstrated acute cardiopulmonary process. No interval change Electronically Signed: Sean Brizuela MD at 17:12 EDT , Service support ,
== END ==
PROVIDERS: PCP Family Medicine; Referring Provider Family Medicine; Visit Provider Family Medicine
DX: R09.1 Pleurisy (principal)
CPT/HCPCS: 71046

== ENCOUNTER → 2019-08-17 16:45 | Outpatient (CLI) | payer MEDICARE, OTHER, SELFPAY ==
[2019-04-13 12:38] VITALS: BMI 37.8
[2019-08-17 17:44] LABS: Hematocrit 40.5 % (37-47); Hemoglobin 12.9 g/dL (12.0-15.0); Mean Corp Hgb Conc 31.9 g/dL (32-36); Mean Corpuscular Hgb 28.7 pg (27.0-32.0); Mean Corpuscular Volume 90.2 fL (81-99); Mean Platelet Vol. 11.9 fl (6.2-12.0); Platelet Count 290 K/mm3 (150-450); RBC Distribution Width CV 12.4 % (11.6-14.6); RBC Distribution Width SD 40.6 fl (35.1-43.9); Red Blood Count 4.49 M/mm3 (4.2-5.4); White Blood Count 14.5 K/mm3 (4.4-11.0)
[2019-08-17 17:53] LABS: Erythrocyte Sedimentation Rate 97 mm/hr (0-30)
[2019-08-17 18:27] LABS: ALB/GLOB Ratio 0.6 RATIO (0.9-2.4); AST(SGOT) 21 U/L (15-37); Alanine Aminotransfer ALT/SGPT 43 U/L (13-56); Albumin, Serum 2.8 g/dL (3.2-5.0); Alkaline Phosphatase 125 U/L (45-117); Anion Gap 9 (5-15); BUN 14 mg/dL (7-18); BUN/Creat Ratio 11.2 RATIO (10-20); Calcium,Total 9.1 mg/dL (8.5-10.1); Chloride 98 mmol/L (98-107); Creatinine, Serum 1.25 mg/dL (0.55-1.02); EST Glomerular Filtration Rate 45 mL/min (>60); Est Glom Filt Rate - Afr Amer 54 mL/min (>60); Ferritin 988 ng/mL (8-252); Globulin 4.7 g/dL (2.2-4.2); Glucose 82 mg/dL (74-106); Iron 20 ug/dL (50-170); Potassium 3.5 mmol/L (3.5-5.1); Protein, Total 7.5 g/dL (6.4-8.2); Sodium Level 135 mmol/L (136-145); Thyroid Stim Hormone (TSH) 1.53 uIU/mL (0.358-3.74)
[2019-08-17 18:38] LABS: Vitamin D,25 Hydroxy 72.9 ng/mL
[2019-08-18 17:08] LABS: Iron Binding Capacity,Total 345 ug/dL (250-450)
== END ==
PROVIDERS: PCP Family Medicine; Referring Provider Family Medicine; Visit Provider Family Medicine
DX: R53.83 Other fatigue (principal); R06.02 Shortness of breath; E03.9 Hypothyroidism, unspecified; E55.9 Vitamin D deficiency, unspecified; R79.82 Elevated C-reactive protein (CRP); I12.9 Hypertensive chronic kidney disease with stage 1 through stage 4 chronic kidney disease, or unspecified chronic kidney disease; N18.9 Chronic kidney disease, unspecified
CPT/HCPCS: 36415; 80053; 82306; 82728; 83540; 83550; 84443; 84484; 85027; 85652; 86140

== ENCOUNTER → 2019-08-18 16:52 | Outpatient (CLI) | payer MEDICARE, OTHER, SELFPAY ==
[2019-04-13 12:38] VITALS: BMI 37.8
--- NOTE | 2019-08-18 17:03 | CT_ITS ---
STUDY: CTA CHEST REASON FOR EXAM: Female, 69 years old. SOB SINCE WEEKEND, CP INTERMITTENT LEFT SIDE, PAIN ACROSS SHOULDER. RADIATION DOSAGE (If Supplied By Facility): CTDIvol = ( 15.48 ) mGy, DLP = ( 568.36 ) mGycm TECHNIQUE: The examination was performed with the intravenous administration of IV 100mL Isovue-370. Post-processing of the angiographic images was performed, with multiplanar reformation and 3D reconstruction. Individualized dose optimization techniques were used for this CT. COMPARISON: Prior chest radiograph August 03, 2019, December 13, [address] a prior chest CT exam of January 03, 2019 FINDINGS: Normal enhancement of the main pulmonary artery and right and left pulmonary arteries. Normal enhancement of the bilateral peripheral pulmonary arteries. There is no demonstrated pulmonary embolism. Minimal plaque and mild elongation of the thoracic aorta without aneurysm or dissection. Normal cardiac size. Small circumferential pericardial effusion. 1 shotty retrocaval lymph node unchanged from prior exam. Shotty right hilar adenopathy not changed from prior exam. Stable chronic changes of the upper lobes including subpleural cystic changes on the right. Stable subpleural cystic and intraparenchymal cystic changes of the right middle lobe. Stable extensive subpleural cystic changes, bronchial thickening and bullous changes of the right lower lobe.. Stable mild chronic subpleural changes of the lingula. Similar changes at the left lung base with a greater degree of intervening lung opacification and a new small left pleural effusion. Normal chest wall structures. There are degenerative changes of thoracic spine. Stable hepatic cyst. Status post cholecystectomy. CT/CTA Chest W/WO Contrast IMPRESSION: Negative for pulmonary embolus. Mild atherosclerotic plaque of the aorta and mild elongation without aneurysm or dissection. Small pericardial effusion increased from prior exam. Normal cardiac size. Negative for substantial coronary calcifications. Extensive subpleural cystic and bullous changes of the lower lobes, bronchial thickening and a new left pleural effusion. Generalized bronchial thickening. There is a larger degree of intervening lung opacification at the left lung base amongst cystic lung changes which may be atelectasis or early pneumonic process. Stable chronic changes of the upper lung zones. Stable hepatic cyst. Status post cholecystectomy. Electronically Signed: Carmel Triana MD at 18:04 EDT , Service support ,
== END ==
PROVIDERS: PCP Family Medicine; Referring Provider Family Medicine; Visit Provider Family Medicine
DX: R06.02 Shortness of breath (principal)
CPT/HCPCS: 71275; Q9967

== ENCOUNTER → 2019-08-23 12:40 | Outpatient (CLI) | payer MEDICARE, OTHER, SELFPAY ==
[2019-04-13 12:38] VITALS: BMI 37.8
[2019-08-23 16:05] LABS: Erythrocyte Sedimentation Rate 37 mm/hr (0-30)
[2019-08-23 16:09] LABS: Absolute Lymphocyte Count 1.08 X10^3/uL (0.83-4.51); Absolute Neutrophil Count 4.3 X10^3/uL (2.0-7.7); Basophil# 0.04 X10^3/uL; Basophil% 0.6 % (0-1); Eosinophils% 7.5 % (0-5); Hematocrit 39.6 % (37-47); Hemoglobin 12.5 g/dL (12.0-15.0); Lymphocyte # 1.08 X10^3/ul (4.0); Lymphocyte % 16.2 % (19-41); Mean Corp Hgb Conc 31.6 g/dL (32-36); Mean Corpuscular Hgb 28.7 pg (27.0-32.0); Mean Corpuscular Volume 90.8 fL (81-99); Mean Platelet Vol. 11.4 fl (6.2-12.0); Monocyte# 0.55 X10^3/uL; Monocyte% 8.2 % (0-10); NRBC Flagged by Analyzer 0 % (0-5); Neutrophil # 4.33 X10^3/uL (2.7-7.7); Platelet Count 323 K/mm3 (150-450); RBC Distribution Width CV 12.6 % (11.6-14.6); RBC Distribution Width SD 41.5 fl (35.1-43.9); Red Blood Count 4.36 M/mm3 (4.2-5.4); White Blood Count 6.7 K/mm3 (4.4-11.0)
== END ==
PROVIDERS: PCP Family Medicine; Referring Provider Family Medicine; Visit Provider Family Medicine
DX: J18.9 Pneumonia, unspecified organism (principal)
CPT/HCPCS: 36415; 85025; 85652; 86140

== ENCOUNTER → 2019-09-06 12:38 | Outpatient (CLI) | payer MEDICARE, OTHER, SELFPAY ==
[2019-04-13 12:38] VITALS: BMI 37.8
--- NOTE | 2019-09-06 12:44 | ECHOD_ITS ---
Reason For Study: Pericardial Effusion Procedure This was a 2D Doppler, Color Flow transthoracic echocardiogram. Exam performed in department. Left Ventricle Normal size and thickness. The estimated ejection fraction is 65 %. Stage 2 diastolic dysfunction. No regional wall motion abnormalities noted. Right Ventricle Normal size and thickness. Normal systolic function. Atria Normal left atrium. Normal right atrium. Normal atrial septum. Mitral Valve The mitral valve is structurally normal. No prolapse or stenosis seen. Mild (1+) mitral valve insufficiency. Tricuspid Valve Normal tricuspid valve. Trivial tricuspid valve insufficiency. Right ventricular systolic pressure estimated to be 34 mmHg. Aortic Valve Normal aortic valve. Trisinus/trileaflet aortic valve. Pulmonic Valve Normal pulmonic valve. Trivial pulmonic valve insufficiency. Great Vessels Normal aortic root. Normal arch. Normal inferior vena cava. Inferior vena cava collapse with sniff. Pericardium/Pleural No pericardial effusion. MMode/2D Measurements & Calculations LVIDd: 5.2 cm IVSd: 1.0 cm LA dimension: 4.5 cm LVIDs: 3.1 cm LVPWd: 1.2 cm RVDd: 3.3 cm FS: 40.0 % LAV(MOD-bp): 57.6 ml LVAd ap4: 23.6 cm2 SV(MOD-sp4): 42.3 ml LAV(MOD-bp) Indexed: 29.4 ml/m2 EDV(MOD-sp4): 66.2 ml LAV(MOD-sp2): 49.6 ml EDV(sp4-el): 68.9 ml LAV(MOD-sp4): 58.9 ml LVAs ap4: 12.8 cm2 ESV(MOD-sp4): 23.8 ml ESV(sp4-el): 23.9 ml EF(MOD-sp4): 64.0 % EF(sp4-el): 65.3 % SV(sp4-el): 45.0 ml Aortic Valve Planimetry: 2.4 cm2 LA A4 area: 19.8 cm2 RA A4 area: 13.5 cm2 Time Measurements MV dec time: 0.17 sec Doppler Measurements & Calculations MV E max david: 67.2 cm/sec Lat Peak E' David: 8.2 cm/sec Med Peak E' David: 7.3 cm/sec MV A max david: 59.6 cm/sec E/E' lat: 8.2 E/E' med: 9.2 MV E/A: 1.1 MV V2 max: 69.5 cm/sec MV P1/2t max david: 69.5 cm/sec Ao V2 max: 114.7 cm/sec MV max P.9 mmHg MV P1/2t: 43.7 msec Ao max P.3 mmHg MV V2 mean: 40.7 cm/sec Ao V2 mean: 79.0 cm/sec MV mean P.75 mmHg MV dec slope: 465.9 cm/sec2 Ao mean P.8 mmHg MV V2 VTI: 19.5 cm MVA(P1/2t): 5.0 cm2 Ao V2 VTI: 25.8 cm LV V1 max: 91.0 cm/sec MR max david: 471.9 cm/sec PA V2 max: 81.9 cm/sec LV V1 max P.3 mmHg MR max P.1 mmHg LV V1 mean P.7 mmHg MR mean david: 390.8 cm/sec LV V1 mean: 60.7 cm/sec MR mean P.4 mmHg LV V1 VTI: 21.1 cm MR VTI: 183.3 cm PI end-d david: 106.9 cm/sec TR max david: 266.1 cm/sec TR max P.3 mmHg Interpretation Summary The estimated ejection fraction is 65 %. Stage 2 diastolic dysfunction. Mild (1+) mitral valve insufficiency. Trivial tricuspid valve insufficiency. Right ventricular systolic pressure estimated to be 34 mmHg. Compared to echo report dated 01/03/2019, LV function has remained the same, and RVSP has decreased from 38 to 34 mmHg. Ordering Physician: Cecil Arriola Referring Physician: Cecil Arriola Performed By: Houston Castillo RCS
== END ==
PROVIDERS: PCP Family Medicine; Referring Provider Family Medicine; Visit Provider Family Medicine
DX: I31.3 Pericardial effusion (noninflammatory) (principal)
CPT/HCPCS: 93306

== ENCOUNTER → 2019-09-14 06:09 | Outpatient (CLI) | payer MEDICARE, OTHER, SELFPAY ==
[2019-04-13 12:38] VITALS: BMI 37.8
--- NOTE | 2019-09-14 16:03 | STRESSREP ---
Stress Test Report Exercise myocardial perfusion stress test. 69-year-old lady with history of shortness of breath. Stress protocol: Resting EKG demonstrates normal sinus rhythm with a rate of 71 bpm normal intervals are noted resting blood pressure is 132/80 mmHg. Patient exercised according to regular Benedicto protocol for total duration of 3 minutes and 30 seconds. The maximum heart rate attained 136 bpm which was 91% of maximum predicted heart rate the maximum workload was 5.1 metabolic equivalents. The patient maintained sinus rhythm throughout the recording. At rest there were no ST or T wave changes noted to suggest ischemia. At peak exercise nonspecific ST changes were noted we did not meet the criteria for ischemia. Occasional premature ventricular complexes were present. The test was terminated due to dyspnea. The resting blood pressure was 132/80 with a peak blood pressure 180/70 mmHg. Myocardial perfusion protocol. 14.7 mCi of technetium 99m sestamibi was injected at rest. The patient exercised according to regular Benedicto protocol and at peak exercise 44.0 mCi of technetium 99m sestamibi was injected stress images were obtained stress and rest images were reconstructed and compared in the short axis vertical long horizontal long axis. Gated images were also obtained Perfusion SPECT analysis: Review of the stress images demonstrate normal uptake of tracer noted in all areas of the myocardium. The resting images demonstrate normal uptake of tracer noted in all areas of the myocardium. No areas of reversibility are noted suggest ischemia no previous infarct is noted. Gated SPECT analysis: The gated ejection fraction is 60%. Conclusion: Normal exercise myocardial perfusion stress test at a low workload. Preserved ejection fraction. The low workload may affect sensitivity for detection of ischemia.
== END ==
PROVIDERS: PCP Family Medicine; Referring Provider Family Medicine; Visit Provider Family Medicine
DX: I25.10 Atherosclerotic heart disease of native coronary artery without angina pectoris (principal)
CPT/HCPCS: 78452; 93017; A9500; A4216

== ENCOUNTER → 2020-01-03 | Outpatient (CLI) | payer MEDICARE, OTHER, SELFPAY ==
[2019-04-13 12:38] VITALS: BMI 37.8
== END | disposition home or self-care (01) ==
PROVIDERS: PCP Family Medicine; Referring Provider Family Medicine; Visit Provider Family Medicine
DX: N39.0 Urinary tract infection, site not specified (principal)
CPT/HCPCS: 87086; 87088

== ENCOUNTER → 2020-03-13 11:54 | Outpatient (CLI) | payer MEDICARE, OTHER, SELFPAY ==
[2019-04-13 12:38] VITALS: BMI 37.8
[2020-03-13 16:35] LABS: AST(SGOT) 15 U/L (15-37); Alanine Aminotransfer ALT/SGPT 23 U/L (13-56); Albumin, Serum 3.4 g/dL (3.2-5.0); Alkaline Phosphatase 91 U/L (45-117); Anion Gap 6 (5-15); BUN 22 mg/dL (7-18); BUN/Creat Ratio 17.7 RATIO (10-20); Calcium,Total 9.1 mg/dL (8.5-10.1); Chloride 102 mmol/L (98-107); Cholesterol 198 mg/dL (200); Creatinine, Serum 1.24 mg/dL (0.55-1.02); EST Glomerular Filtration Rate 45 mL/min (>60); Est Glom Filt Rate - Afr Amer 55 mL/min (>60); Globulin 3.3 g/dL (2.2-4.2); Glucose 88 mg/dL (74-106); High Density Lipoprotein 64 mg/dL; Potassium 3.6 mmol/L (3.5-5.1); Protein, Total 6.7 g/dL (6.4-8.2); Sodium Level 139 mmol/L (136-145); Thyroid Stim Hormone (TSH) 2.36 uIU/mL (0.358-3.74); Triglycerides 92 mg/dL; Very Low Density Lipoprotein 18 mg/dL (5-40)
[2020-03-13 16:50] LABS: Vitamin D,25 Hydroxy 56.6 ng/mL
== END ==
PROVIDERS: PCP Family Medicine; Referring Provider Family Medicine; Visit Provider Family Medicine
DX: N39.0 Urinary tract infection, site not specified (principal); I31.3 Pericardial effusion (noninflammatory); I10 Essential (primary) hypertension; E03.9 Hypothyroidism, unspecified
CPT/HCPCS: 36415; 80053; 80061; 82306; 84443; 86141; 87086; 87088

== ENCOUNTER → 2020-10-16 11:00 | Outpatient (CLI) | payer MEDICARE, OTHER, SELFPAY ==
[2019-04-13 12:38] VITALS: BMI 37.8
[2020-10-16 12:51] LABS: Anion Gap 6 (5-15); BUN 20 mg/dL (7-18); BUN/Creat Ratio 17.5 RATIO (10-20); Calcium,Total 9.1 mg/dL (8.5-10.1); Chloride 107 mmol/L (98-107); Creatinine, Serum 1.14 mg/dL (0.55-1.02); EST Glomerular Filtration Rate 50 mL/min (>60); Est Glom Filt Rate - Afr Amer 60 mL/min (>60); Glucose 91 mg/dL (74-106); Potassium 3.5 mmol/L (3.5-5.1); Sodium Level 142 mmol/L (136-145)
== END ==
PROVIDERS: PCP Family Medicine; Referring Provider Family Medicine; Visit Provider Family Medicine
DX: N18.30 Chronic kidney disease, stage 3 unspecified (principal); R79.82 Elevated C-reactive protein (CRP)
CPT/HCPCS: 36415; 80048; 86140; 86141

== ENCOUNTER → 2020-11-28 12:48 | Outpatient (CLI) | payer MEDICARE, OTHER, SELFPAY ==
--- NOTE | 2020-11-28 12:50 | BI_ITS ---
MAMMOGRAPHY - BILATERAL SCREENING REASON FOR EXAM: Female, 70 years old. Routine annual screening examination. PERTINENT HISTORY: Aunt with breast cancer. TECHNIQUE: Digital bilateral breast aliya (3D mammographic acquisition) in the CC and MLO projections. 2-D mediolateral oblique (MLO) and craniocaudad (CC) views of both breasts were obtained. CAD: Full Field Digital Mammography with Computer Added Detection was performed. COMPARISON: Comparison is made with prior study 12/20/2018 and 05/21/2017. FINDINGS: Breast Composition: The breasts are almost entirely fatty. There are no dominant masses or suspicious calcifications. Stable small benign-appearing bilateral axillary lymph nodes. No other significant abnormalities are identified. There has been no significant change since the prior study. BI/SCRN MAMM (CAD)W/ALIYA BILAT IMPRESSION: Stable bilateral screening mammogram. Yearly follow-up mammogram recommended. (A) ASSESSMENT CATEGORY: BIRADS Category 2: Benign. A letter regarding these results will be sent to the patient by the facility within 30 days. Approximately 10% of breast cancers are not detected by mammography. A normal mammogram should not delay biopsy of a clinically suspicious abnormality. [id number] Electronically Signed: Serafin Braun MD at 14:21 EDT , Service support ,
== END ==
PROVIDERS: PCP Family Medicine; Visit Provider Family Medicine
DX: Z12.31 Encounter for screening mammogram for malignant neoplasm of breast (principal); Z80.3 Family history of malignant neoplasm of breast
CPT/HCPCS: 77063; 77067

== ENCOUNTER 2021-03-11 09:08 | Outpatient (CLI) | payer MEDICARE, OTHER, SELFPAY ==
[2021-03-11 10:24] LABS: Vitamin B12 467 pg/mL (211-911)
[2021-03-11 10:28] LABS: ALB/GLOB Ratio 0.8 RATIO (0.9-2.4); AST(SGOT) 13 U/L (15-37); Alanine Aminotransfer ALT/SGPT 21 U/L (13-56); Albumin, Serum 3.1 g/dL (3.2-5.0); Alkaline Phosphatase 83 U/L (45-117); Anion Gap 6 (5-15); BUN 19 mg/dL (7-18); BUN/Creat Ratio 16.1 RATIO (10-20); Calcium,Total 9.3 mg/dL (8.5-10.1); Chloride 105 mmol/L (98-107); Cholesterol 189 mg/dL (200); Creatinine, Serum 1.18 mg/dL (0.55-1.02); EST Glomerular Filtration Rate 48 mL/min (>60); Est Glom Filt Rate - Afr Amer 58 mL/min (>60); Globulin 3.8 g/dL (2.2-4.2); Glucose 93 mg/dL (74-106); High Density Lipoprotein 57 mg/dL; Potassium 3.5 mmol/L (3.5-5.1); Protein, Total 6.9 g/dL (6.4-8.2); Sodium Level 143 mmol/L (136-145); T4 Free Direct 1.14 ng/dL (0.76-1.46); Triglycerides 134 mg/dL; Very Low Density Lipoprotein 27 mg/dL (5-40)
== END 2021-03-11 23:59 | disposition short-term general hospital (02) ==
LOC: MTLAB 09:10
PROVIDERS: PCP Family Medicine; Referring Provider Family Medicine; Visit Provider Family Medicine
DX: R79.82 Elevated C-reactive protein (CRP) (principal); I25.10 Atherosclerotic heart disease of native coronary artery without angina pectoris; E03.9 Hypothyroidism, unspecified; E53.8 Deficiency of other specified B group vitamins; E55.9 Vitamin D deficiency, unspecified
CPT/HCPCS: 36415; 80053; 80061; 82306; 82607; 84439; 84443; 86140

== ENCOUNTER 2021-05-01 12:38 | Emergency (ER) | payer MEDICARE, OTHER, SELFPAY ==
[2021-05-01 12:38] VITALS: BP 161/83; PULSE 75; RESP 16; TEMP 36.4; O2SAT 98; BMI 40.2
--- NOTE | 2021-05-01 12:55 | RAD_ITS ---
STUDY: X-RAY CHEST REASON FOR EXAM: Female, 70 years old. Shortness of Breath TECHNIQUE: PA and lateral views of the chest. COMPARISON: Comparison is made with prior study dated 08/03/2019. FINDINGS: Since prior study, there''ve been progressive increase in interstitial markings at the lung bases with areas of confluence. This may represent either progressive interstitial fibrosis versus superimposed pneumonic infiltrates. There is no demonstrated pleural abnormality. Normal size heart. Normal mediastinum and dnoald. Normal visualized pulmonary arteries. There is atherosclerotic tortuosity of the aortic arch and descending thoracic aorta. There are diffuse degenerative changes of the visualized thoracic spine. Normal visualized ribs, clavicles, and shoulders. The patient is status post cholecystectomy. RAD/Chest PA and Lateral IMPRESSION: Progressive increased markings with areas of confluence at the lung bases suggestive of either progressive interstitial fibrosis versus superimposed patchy infiltrates. Electronically Signed: Serafin Braun MD at 13:22 EST ,
--- NOTE | 2021-05-01 13:08 | ED.VIS.DYS ---
HPI History of Present Illness Chief Complaint: Shortness of Breath Narrative Narrative: Patient presents with the feeling as if her right lung is filling up. This happened over the last 24 hours. 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 It is nonmetastatic according to her. She denies any fevers or chills. No cough. No other symptoms. She states that she presents because she wants to make sure that everything is okay. She has a subjective feeling of her right lung filling up only on one side with mild shortness of breath. [facility] Medical History (Updated 05/01/21 @ 13:34 by Bari Figueroa MD) Cough Dyspnea Fatigue PHT (pulmonary hypertension) Home Medications cholecalciferol (vitamin D3) 125 mcg (5,000 unit) capsule 5,000 unit PO DAILY 01/06/19 [History Last Taken Unknown] fluticasone propionate 50 mcg/actuation nasal spray,suspension 2 spray INTRANASAL DAILY 01/06/19 [History Last Taken Unknown] levothyroxine 50 mcg tablet 50 mcg PO DAILY 01/06/19 [History Last Taken Unknown] metoprolol succinate 100 mg tablet,extended release 24 hr 100 mg PO DAILY 01/06/19 [History Last Taken Unknown] mirabegron 25 mg tablet,extended release 24 hr 25 mg PO DAILY 01/06/19 [History Last Taken Unknown] pentosan polysulfate sodium 100 mg capsule 100 mg PO BID cap 01/06/19 [History Last Taken Unknown] phenazopyridine 200 mg tablet 200 mg PO TID PRN 01/06/19 [History Last Taken Unknown] trazodone 50 mg tablet 50 - 100 mg PO QHS PRN tab 01/06/19 [History Last Taken Unknown] triamterene 75 mg-hydrochlorothiazide 50 mg tablet 0.5 tab PO DAILY tab 01/06/19 [History Last Taken Unknown] Allergy/AdvReac Type Severity Reaction Status Date / Time zolpidem [From Ambien] AdvReac Intermediate hangover Verified 05/01/21 12:41 effect Social History Smoking Status: Never smoker ROS ROS ED ROS Narrative Constitutional: No fever, no chills. HEENT: No sore throat. No neck pain. No loss of vision. No rhinorrhea. Cardiovascular: No chest pain. No palpitations. No pedal edema. Respiratory: No cough, sensation of right lung filling up. Mild shortnessof breath. Abdominal: No abdominal pain. No nausea. No vomiting. Genitourinary: No dysuria. No hematuria. Musculoskeletal: No myalgias. No arthralgias. Neurologic: No headaches. No dizziness. No lightheadedness. Skin: No rash. No change in color. Psychiatric: No depression. No anxiety. EXAM Physical Exam Narrative Exam Narrative: Afebrile. Vital signs noted. HEENT: Normocephalic. Atraumatic. PERRL, EOMI. Neck soft and supple. No point tenderness or step off. Cardiovascular: Regular rate and rhythm. No murmurs, rubs, or gallops appreciated. Respiratory: No tachypnea. Lungs clear to auscultation bilaterally. No retractions. Speaking in full sentences. Gastrointestinal: Abdomen soft, nontender, with normoactive bowel sounds. No rebound or guarding. Neurological: Awake. Alert. Nonfocal, nonlateralizing. Skin: No rash. Normal color. No pallor. Musculoskeletal: No pedal edema. Full range of motion extremities. Const Vital Signs: 05/01/21 12:38 05/01/21 12:56 Temperature 97.5 F L Temperature Source Temporal Pulse Rate 75 Respiratory Rate 16 Respiratory Effort Normal Non-Labored Respiratory Depth Normal Respiratory Pattern Normal Blood Pressure 161/83 H Blood Pressure Mean 109 Pulse Ox 98 Oxygen Delivery Method Room Air Room Air MDM MDM MDM Narrative Medical decision making narrative: I will obtain a chest x-ray. Her O2 saturation is 98% on room air without evidence of hypoxia. She is not tachypneic. I do not feel that laboratory work is indicated. Additionally, I do not feel that laboratory work or a D-dimer is indicated. I feel it may be falsely elevated secondary to her age and her recent surgery 2 days ago. My suspicion is low for pulmonary embolism. Her chest x-ray does show progressive increased markings with areas of confluence of the lung bases suggestive of either progressive interstitial fibrosis versus superimposed patchy infiltrates. I do not feel that she is in CHF, and I also do not feel that antibiotics are indicated. At this point in time, I feel she can be discharged safely home to follow-up with her primary care physician for possible referral to a telecommunications linesworker again. Her did say that she had been diagnosed with idiopathic pulmonary fibrosis versus hypertension, but she had stated that that had resolved. Return instructions to the emergency department were reviewed. Disposition is discharged home in stable condition. Radiography Diagnostic Testing: Clinical Impression(s) from Imaging Studies Chest X-Ray 05/01/21 12:55 IMPRESSION: Progressive increased markings with areas of confluence at the lung bases suggestive of either progressive interstitial fibrosis versus superimposed patchy infiltrates. Electronically Signed: Serafin Braun MD at 13:22 EST , Discharge Plan Triage Chief Complaint: Shortness of Breath ED Provider: Bari Figueroa Dx/Rx/DC Orders Clinical Impression: Dyspnea, Pulmonary fibrosis Instructions: Pulmonary Fibrosis, ED Dyspnea Prescriptions: No Action metoprolol succinate [Toprol XL] 100 mg tablet extended release 24 hr 100 mg PO DAILY RF: 0 Elmiron 100 mg capsule 100 mg PO BID RF: 0 phenazopyridine [Pyridium] 200 mg tablet 200 mg PO TID PRN (Reason: pain) RF: 0 triamterene-hydrochlorothiazid 75-50 mg tablet 0.5 tab PO DAILY RF: 0 levothyroxine [Synthroid] 50 mcg tablet 50 mcg PO DAILY RF: 0 cholecalciferol (vitamin D3) 5,000 unit capsule 5,000 unit PO DAILY RF: 0 Myrbetriq 25 mg tablet extended release 24 hr 25 mg PO DAILY RF: 0 trazodone 50 mg tablet 50 - 100 mg PO QHS PRN (Reason: insomnia) RF: 0 fluticasone propionate [Flonase Allergy Relief] 50 mcg/actuation spray,suspension 2 spray INTRANASAL DAILY RF: 0 Primary Care Provider: Cecil Arriola Referrals: Cecil Arriola MD [Primary Care Provider] - 3-5 Days Disposition Disposition: Home, Self Care
--- NOTE | 2021-05-02 11:20 | CASEMGMT ---
[facility] ED follow-up: Date of ER visit: 05/01/2021 Presenting ER complaint: shortness of breath [facility] placed call to patient's telephone number listed on demographics with no answer. Voice message with call back information left to request return call if any questions, needs or concerns. PRINCESS Blankenship CM
== END 2021-05-01 13:43 | disposition home or self-care (01) ==
PROVIDERS: Emergency Provider Emergency Medicine; PCP Family Medicine; Visit Provider Emergency Medicine
DX: J84.10 Pulmonary fibrosis, unspecified (principal); I27.20 Pulmonary hypertension, unspecified; C43.30 Malignant melanoma of unspecified part of face; Z79.890 Hormone replacement therapy; Z79.899 Other long term (current) drug therapy
CPT/HCPCS: 71046; 99282

== ENCOUNTER → 2021-12-09 | Outpatient (CLI) | payer MEDICARE, OTHER, SELFPAY ==
--- NOTE | 2021-12-09 08:16 | BI_ITS ---
MAMMOGRAPHY - BILATERAL SCREENING REASON FOR EXAM: Female, 71 years old. Routine annual screening examination. PERTINENT HISTORY: Non-contributory. TECHNIQUE: Digital bilateral breast aliya (3D mammographic acquisition) in the CC and MLO projections. 2-D mediolateral oblique (MLO) and craniocaudad (CC) views of both breasts were obtained. CAD: Full Field Digital Mammography with Computer Added Detection was performed. COMPARISON: Comparison is made with prior study 11/28/2020 and 12/20/2018. FINDINGS: Breast Composition: The breasts are almost entirely fatty. There are no dominant masses or suspicious calcifications. Stable small benign-appearing bilateral axillary lymph nodes. No other significant abnormalities are identified. There has been no significant change since the prior study. BI/SCRN MAMM (CAD)W/ALIYA BILAT IMPRESSION: Stable bilateral screening mammogram. Yearly follow-up mammogram recommended. (A) ASSESSMENT CATEGORY: BIRADS Category 2: Benign. A letter regarding these results will be sent to the patient by the facility within 30 days. Approximately 10% of breast cancers are not detected by mammography. A normal mammogram should not delay biopsy of a clinically suspicious abnormality. [id number] Electronically Signed: Serafin Braun MD at 9:19 EDT ,
== END | disposition home or self-care (01) ==
LOC: OPBI 08:14
PROVIDERS: PCP Family Medicine; Visit Provider Internal Medicine Hematology & Oncology
DX: Z12.31 Encounter for screening mammogram for malignant neoplasm of breast (principal)
CPT/HCPCS: 77063; 77067

== ENCOUNTER → 2022-03-31 | Outpatient (CLI) | payer MEDICARE, OTHER, SELFPAY ==
[2022-03-31 15:26] LABS: Hematocrit 43.6 % (37-47); Hemoglobin 14.5 g/dL (12.0-15.0); Mean Corp Hgb Conc 33.3 g/dL (32-36); Mean Corpuscular Hgb 29.6 pg (27.0-32.0); Platelet Count 172 K/mm3 (150-450); RBC Distribution Width CV 12.8 % (11.6-14.6); RBC Distribution Width SD 41.7 fl (35.1-43.9); White Blood Count 7.6 K/mm3 (4.4-11.0)
[2022-03-31 15:31] LABS: Vitamin B12 535 pg/mL (211-911); Vitamin D,25 Hydroxy 47.5 ng/mL
[2022-03-31 15:35] LABS: Anion Gap 3 (5-15); BUN 24 mg/dL (7-18); BUN/Creat Ratio 17.5 RATIO (10-20); Calcium,Total 9.7 mg/dL (8.5-10.1); Chloride 106 mmol/L (98-107); Creatinine, Serum 1.37 mg/dL (0.55-1.02); EST Glomerular Filtration Rate 40 mL/min (>60); Est Glom Filt Rate - Afr Amer 49 mL/min (>60); Glucose 103 mg/dL (74-106); Potassium 3.7 mmol/L (3.5-5.1); Sodium Level 139 mmol/L (136-145); T4 Free Direct 1.15 ng/dL (0.76-1.46); Thyroid Stim Hormone (TSH) 2.03 uIU/mL (0.358-3.74)
== END | disposition home or self-care (01) ==
PROVIDERS: PCP Family Medicine; Referring Provider Family Medicine; Visit Provider Family Medicine
DX: N18.30 Chronic kidney disease, stage 3 unspecified (principal); E53.8 Deficiency of other specified B group vitamins; R79.82 Elevated C-reactive protein (CRP); E03.9 Hypothyroidism, unspecified; E55.9 Vitamin D deficiency, unspecified
CPT/HCPCS: 36415; 80048; 82306; 82607; 84439; 84443; 85027; 86140

== ENCOUNTER → 2022-04-29 | Outpatient (CLI) | payer MEDICARE, OTHER, SELFPAY ==
--- NOTE | 2022-04-29 10:52 | RAD_ITS ---
STUDY: X-RAY - ABDOMEN/PELVIS REASON FOR EXAM: Female, 71 years old. BLOATING TECHNIQUE: 4 supine views COMPARISON: None. FINDINGS: Normal visualized lung bases. There is a moderate amount of colonic fecal material. There is no demonstrated free abdominal air. The visualized liver, spleen and kidneys are grossly normal in size and morphology. Normal soft tissue structures. Normal visualized osseous structures. RAD/Abd Inc Decub and/or Erect IMPRESSION: No acute findings Electronically Signed: Sean Brizuela MD at 11:22 EST ,
[2022-04-29 15:12] LABS: Erythrocyte Sedimentation Rate 23 mm/hr (0-30)
[2022-04-29 15:14] LABS: Absolute Lymphocyte Count 1.57 X10^3/uL (0.83-4.51); Absolute Neutrophil Count 5.9 X10^3/uL (2.0-7.7); Basophil# 0.06 X10^3/uL; Basophil% 0.7 % (0-1); Eosinophil# 0.35 X10^3/uL; Hematocrit 42.7 % (37-47); Hemoglobin 13.9 g/dL (12.0-15.0); Lymphocyte # 1.57 X10^3/ul (0.83-4.51); Lymphocyte % 18.2 % (19-41); Mean Corp Hgb Conc 32.6 g/dL (32-36); Mean Corpuscular Hgb 29.9 pg (27.0-32.0); Mean Corpuscular Volume 91.8 fL (81-99); Mean Platelet Vol. 12.1 fl (6.2-12.0); Monocyte# 0.68 X10^3/uL; Monocyte% 7.9 % (0-10); NRBC Flagged by Analyzer 0 % (0-5); Neutrophil # 5.94 X10^3/uL (2.7-7.7); Neutrophil % 68.6 % (47-70); Platelet Count 177 K/mm3 (150-450); RBC Distribution Width CV 13.2 % (11.6-14.6); RBC Distribution Width SD 44.1 fl (35.1-43.9); Red Blood Count 4.65 M/mm3 (4.2-5.4); White Blood Count 8.7 K/mm3 (4.4-11.0)
[2022-04-29 18:37] LABS: AST(SGOT) 15 U/L (15-37); Alanine Aminotransfer ALT/SGPT 25 U/L (13-56); Albumin, Serum 3.3 g/dL (3.2-5.0); Alkaline Phosphatase 68 U/L (45-117); Bilirubin, Direct 0.09 mg/dL (0.00-0.30); Ferritin 265 ng/mL (8-252); Globulin 3.4 g/dL (2.2-4.2); Iron 95 ug/dL (50-170); Protein, Total 6.7 g/dL (6.4-8.2); Rheumatoid Factor < 10.0 IU/mL (<15); Uric Acid 7.4 mg/dL (2.6-6.0)
[2022-05-01 19:42] LABS: ANTINUCLEAR ANTIBODIES DIRECT Negative (Negative)
[2022-05-04 10:07] LABS: PROEL- A/G Ratio 1.2 (0.7-1.7); PROEL- Albumin 3.3 g/dL (2.9-4.4); PROEL- Alpha-1 Globulin 0.3 g/dL (0.0-0.4); PROEL- Alpha-2 Globulin 0.7 g/dL (0.4-1.0); PROEL- Beta Globulin 1.1 g/dL (0.7-1.3); PROEL- Gamma Globulin 0.7 g/dL (0.4-1.8); PROEL- Globulin, Total 2.8 g/dL (2.2-3.9); PROEL- TOTAL PROTEIN 6.1 g/dL (6.0-8.5); PROELU- Albumin, Urine 31.3 % (.); PROELU- Alpha-1-Globulin,Ur 5.5 % (.); PROELU- Alpha-2-Globulin,Ur 17.5 % (.); PROELU- Beta Globulin, Ur 24.3 % (.); PROELU- Gamma Globulin, Ur 21.4 % (.); Total Protein, Ur 10.2 mg/dL (Not Estab.)
== END | disposition home or self-care (01) ==
LOC: MTLAB 10:46
PROVIDERS: PCP Family Medicine; Referring Provider Family Medicine; Visit Provider Family Medicine
DX: R14.0 Abdominal distension (gaseous) (principal); N18.30 Chronic kidney disease, stage 3 unspecified; E53.8 Deficiency of other specified B group vitamins
CPT/HCPCS: 36415; 74019; 80076; 82728; 83540; 84165; 84166; 84550; 85025; 85652; 86038; 86431

== ENCOUNTER 2022-07-16 11:31 | Outpatient (CLI) | payer MEDICARE, OTHER, SELFPAY ==
[2022-07-16 11:41] LABS: Mucous, Urine 0 SEEN /hpf (<or=2+)
[2022-07-16 15:22] LABS: Color, Urine Yellow (Yellow); Glucose, Dipstick Normal (Normal); Ketone-Dipstick 5 mg/dl (Negative); Leukocyte Esterase-Dipstick 500 /ul (Negative); Nitrite-Dipstick Negative (Negative); Occult Blood-Urine 10 /ul (Negative); Protein-Dipstick 15 mg/dl (Negative); Urine Bilirubin Dipstick Negative (Negative); Urine Clarity Sl. Cloudy (Clear); Urine Urobilinogen 1 mg/dl (Normal)
[2022-07-16 15:24] LABS: Absolute Lymphocyte Count 1.28 X10^3/uL (0.83-4.51); Absolute Neutrophil Count 5.4 X10^3/uL (2.0-7.7); Basophil# 0.07 X10^3/uL; Basophil% 0.9 % (0-1); Eosinophil# 0.24 X10^3/uL; Eosinophils% 3.1 % (0-5); Hematocrit 42.7 % (37-47); Lymphocyte # 1.28 X10^3/ul (0.83-4.51); Lymphocyte % 16.8 % (19-41); Mean Corp Hgb Conc 32.8 g/dL (32-36); Mean Corpuscular Hgb 30.6 pg (27.0-32.0); Mean Corpuscular Volume 93.2 fL (81-99); Mean Platelet Vol. 12.2 fl (6.2-12.0); Monocyte# 0.61 X10^3/uL; NRBC Flagged by Analyzer 0 % (0-5); Neutrophil # 5.39 X10^3/uL (2.7-7.7); Neutrophil % 70.7 % (47-70); Platelet Count 176 K/mm3 (150-450); RBC Distribution Width CV 13.4 % (11.6-14.6); RBC Distribution Width SD 45.4 fl (35.1-43.9); Red Blood Count 4.58 M/mm3 (4.2-5.4); White Blood Count 7.6 K/mm3 (4.4-11.0)
[2022-07-16 15:36] LABS: ALB/GLOB Ratio 1.1 RATIO (0.9-2.4); AST(SGOT) 13 U/L (15-37); Alanine Aminotransfer ALT/SGPT 21 U/L (13-56); Albumin, Serum 3.4 g/dL (3.2-5.0); Alkaline Phosphatase 67 U/L (45-117); Anion Gap 6 (5-15); BUN 19 mg/dL (7-18); Calcium,Total 9.3 mg/dL (8.5-10.1); Chloride 109 mmol/L (98-107); Cholesterol 195 mg/dL (200); Creatinine, Serum 1.19 mg/dL (0.55-1.02); EST Glomerular Filtration Rate 47 mL/min (>60); Est Glom Filt Rate - Afr Amer 57 mL/min (>60); Globulin 3.2 g/dL (2.2-4.2); Glucose 99 mg/dL (74-106); High Density Lipoprotein 64 mg/dL; Potassium 3.7 mmol/L (3.5-5.1); Protein, Total 6.6 g/dL (6.4-8.2); Rheumatoid Factor < 10.0 IU/mL (<15); Sodium Level 142 mmol/L (136-145); Triglycerides 131 mg/dL; Very Low Density Lipoprotein 26 mg/dL (5-40)
[2022-07-16 15:39] LABS: Bacteria 1+ /hpf (None Seen); Red Blood Cells-Urine 0-5 SEEN /hpf (0-5); Squamous Epithelial Cells - UA 5-10 SEEN /hpf (5-10); White Blood Cells 5-10 SEEN /hpf (0-5)
[2022-07-16 15:52] LABS: Hemoglobin A1c 5.3 % (3.8-5.6)
== END 2022-07-16 23:59 | disposition home or self-care (01) ==
PROVIDERS: PCP Family Medicine; Referring Provider Physician Assistant Medical; Visit Provider Physician Assistant Medical
DX: L92.0 Granuloma annulare (principal); E03.9 Hypothyroidism, unspecified; Z79.899 Other long term (current) drug therapy
CPT/HCPCS: 36415; 80053; 80061; 81001; 83036; 85025; 86038; 86225; 86431

== ENCOUNTER 2022-08-05 10:00 | Outpatient (RCR) | payer MEDICARE, OTHER, SELFPAY ==
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
== END 2022-08-05 19:00 | disposition home or self-care (01) ==
LOC: OT 10:00
PROVIDERS: PCP Family Medicine; Referring Provider Orthopaedic Surgery Sports Medicine; Visit Provider Orthopaedic Surgery Sports Medicine
DX: T23.121D Burn of first degree of single right finger (nail) except thumb, subsequent encounter (principal)
CPT/HCPCS: 97035; 97140; 97166; 97530

== ENCOUNTER → 2022-08-05 | Outpatient (CLI) | payer MEDICARE, OTHER, SELFPAY ==
--- NOTE | 2022-08-05 14:25 | RAD_ITS ---
STUDY: X-RAY - RIGHT KNEE REASON FOR EXAM: Female, 72 years old. Pain TECHNIQUE: 4 view(s) of the knee. COMPARISON: None. FINDINGS: Osteopenia. Superior and inferior patellar spurs. Mild medial compartmental arthrosis. Normal lateral compartment. Slight lateral tilt and subluxation of the patella with mild arthrosis of the lateral patellofemoral compartment. Normal soft tissues. RAD/Knee 4 or More Views IMPRESSION: Osteopenia with medial and patellofemoral compartmental arthrosis. No acute abnormality or erosive changes. Electronically Signed: Bhanu Yarbrough MD at 10:37 EDT ,
== END | disposition home or self-care (01) ==
PROVIDERS: PCP Family Medicine; Referring Provider Family Medicine; Visit Provider Family Medicine
DX: M25.561 Pain in right knee (principal)
CPT/HCPCS: 73564

== ENCOUNTER → 2022-12-17 | Outpatient (CLI) | payer MEDICARE, OTHER, SELFPAY ==
[2022-12-17 07:46] LABS: Anion Gap 5 (5-15); BUN 23 mg/dL (7-18); BUN/Creat Ratio 18.1 RATIO (10-20); Calcium,Total 9.4 mg/dL (8.5-10.1); Chloride 106 mmol/L (98-107); Cholesterol 195 mg/dL (200); Creatinine, Serum 1.27 mg/dL (0.55-1.02); EST Glomerular Filtration Rate 44 mL/min (>60); Est Glom Filt Rate - Afr Amer 53 mL/min (>60); Glucose 100 mg/dL (74-106); High Density Lipoprotein 57 mg/dL; Potassium 3.6 mmol/L (3.5-5.1); Sodium Level 139 mmol/L (136-145); Triglycerides 139 mg/dL; Uric Acid 6.4 mg/dL (2.6-6.0); Very Low Density Lipoprotein 28 mg/dL (5-40)
[2022-12-17 07:56] LABS: Glucose GTT- Fasting 100 mg/dL (74-106)
[2022-12-17 09:07] LABS: Glucose GTT- 1 Hour 266 mg/dL (120-170)
[2022-12-17 09:16] LABS: Glucose GTT-30 minutes 203 mg/dL (110-170)
[2022-12-17 09:36] LABS: Glucose GTT- 2 Hour 225 mg/dL (70-120)
--- NOTE | 2022-12-17 10:09 | BI_ITS ---
MAMMOGRAPHY - BILATERAL SCREENING REASON FOR EXAM: Female, 72 years old. Routine annual screening examination. PERTINENT HISTORY: Aunt with breast cancer. Personal history of cervical carcinoma. TECHNIQUE: Digital bilateral breast aliya (3D mammographic acquisition) in the CC and MLO projections. 2-D mediolateral oblique (MLO) and craniocaudad (CC) views of both breasts were obtained. CAD: Full Field Digital Mammography with Computer Added Detection was performed. COMPARISON: Comparison is made with prior study dated December 09, 2021 and November 28, 2020. FINDINGS: Breast Composition: The breasts are almost entirely fatty. There are no dominant masses or suspicious calcifications. No other significant abnormalities are identified. There has been no significant change since the prior study. BI/SCRN MAMM (CAD)W/ALIYA BILAT IMPRESSION: Stable bilateral screening mammogram. Yearly follow-up mammogram recommended. (A) ASSESSMENT CATEGORY: BIRADS Category 1: Negative. A letter regarding these results will be sent to the patient by the facility within 30 days. Approximately 10% of breast cancers are not detected by mammography. A normal mammogram should not delay biopsy of a clinically suspicious abnormality. [id number] Electronically Signed: Serafin Braun MD at 13:31 EDT ,
--- NOTE | 2022-12-17 10:14 | BD_ITS ---
STUDY: DUAL ENERGY X-RAY ABSORPTIOMETRY / DXA REASON FOR EXAM: Female, 72 years old. 733.00OsteoporosisBONE DENSITY REASON FOR EXAM TECHNIQUE: Bone Mineral Density (BMD) measurements of lumbar spine and bilateral hips were obtained. COMPARISON: Comparison is made with prior study dated December 20, 2018. FINDINGS: Lumbar Spine (L1-L4): g/cm2 (1.449) / T-score (3.4) / Z-score (5.8) Findings are suggestive of normal bone density with a low fracture risk. Left Femur Total: g/cm2 (1.127) / T-score (1.5) / Z-score (3.3) Left Femoral Neck: g/cm2 (0.874) / T-score (0.2) / Z-score (2.3) Right Femur Total: g/cm2 (1.124) / T-score (1.5) / Z-score (3.2) Right Femoral Neck: g/cm2 (0.808) / T-score (-0.4) / Z-score (1.7) The T-Scores on the most recent prior examination were: Lumbar Spine (L1-L4): There has been worsening of bone density since the previous examination. Left Femur Total: which represents a worsening of 6%. Right Femur Total: which represents a worsening of 7%. BD/Dexa Bone Density Study IMPRESSION: The patient is considered normal as outlined below according to World Malcolm Organization (WHO) criteria with a low fracture risk. There has been worsening of bone density since the previous examination. Reference Information: The T-score is the number of standard deviations above or below the standard which is normal for young adults at their peak bone mineral density. The World Health Organization (WHO) interprets the T-scores as follows: Above -1 Normal bone density Between -1 and -2.5 Osteopenia Equal to / or below -2.5 Osteoporosis As a practical clinical guideline, osteopenia may be graded as follows: Mild -1 through -1.5 Moderate -1.6 through -2.0 Severe -2.1 through -2.4 The Z-score is the number of standard deviations above or below age-matched controls. A Z-score of less than -1.5 would be considered abnormal. References: 1. NIH Osteoporosis and Related Bone Diseases www osteo.org 2. International Society for Clinical Densitometry www iscd.org 3. National Osteoporosis Foundation www nof.org Electronically Signed: Serafin Braun MD at 14:17 EDT ,
[2022-12-17 10:46] LABS: Glucose GTT- 3 Hour 140 mg/dL (74-106)
[2022-12-17 11:34] LABS: Glucose GTT- 4 Hour 73 mg/dL (74-106)
[2022-12-17 13:13] LABS: Glucose GTT- 5 Hour 69 mg/dL (74-106)
== END | disposition home or self-care (01) ==
LOC: OPBD 10:08
PROVIDERS: PCP Family Medicine; Referring Provider Family Medicine; Visit Provider Family Medicine
DX: Z12.31 Encounter for screening mammogram for malignant neoplasm of breast (principal); N18.30 Chronic kidney disease, stage 3 unspecified; E16.2 Hypoglycemia, unspecified; E79.0 Hyperuricemia without signs of inflammatory arthritis and tophaceous disease; Z13.220 Encounter for screening for lipoid disorders; M81.0 Age-related osteoporosis without current pathological fracture
CPT/HCPCS: 36415; 77063; 77067; 77080; 80048; 80061; 82951; 82952; 84550

== ENCOUNTER → 2023-03-17 | Outpatient (CLI) | payer OTHER, MEDICARE, SELFPAY ==
--- OUTSIDE RECORDS SUMMARY | 2023-03-17 19:42 | XMS RPT_ITS | CCD ---
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 Leukocytes, Urine LARGE (3+) (A) NEGATIVE IMPRESSION/PLAN: Course: Worsening; stable 1. Dysuria - POCT UA Automated manually resulted - Urine Culture - amoxicillin-pot clavulanate (Augmentin) 875-125 mg tablet; Take 1 tablet (875 mg) by mouth 2 times a day for 10 days. Take with a meal. Dispense: 20 tablet; Refill: 0 - phenazopyridine (Pyridium) 200 mg tablet; Take 1 tablet (200 mg) by mouth 3 times a day as needed for bladder spasms for up to 3 days. Dispense: 9 tablet; Refill: 0 Symptoms/exam consistent with UTI, although reviewed other potential etiologies. No CVA tenderness, is afebrile, and no other red flags on exam. Patient will be discharged home with oral antibiotics (Augmentin, as she reports Macrobid never works, she was just on Cipro, and she reports was unable to tolerate Keflex in the past; she also has a ?history of renal insufficiency). Instructed to begin antibiotic LESVIA (reviewed expectations and common side effects of treatment), and complete full course of medication, even if symptoms resolve more quickly. Also advised to push fluids, rest, and to use appropriate over the counter medications for management of symptoms - cranberry juice/pills may be helpful. Advised to follow-up with primary care provider or ER LESVIA if develops fever/chills, body aches, malaise, back/abdominal pain, nausea/vomiting, mental status changes, or if additional concerns/red flags develop. Also stressed importance of follow up with PCP next week. Reviewed strategies for UTI prevention in the future. Patient agreed with plan of care; questions were encouraged and answered. Sending urine for culture to ensure appropriate antibiotic coverage - will contact with results/recommendations. MAGDALENA Jimenez Advanced Practice Provider [facility] documented in this encounter [facility] Work Phone: Instructions 2021 Note Date & Type Note Facility [facility] [place] [facility] Work Phone: Evaluation note Note Date & Type Note Facility Evaluation note There may be informa tion available, but it has not been provided by the sender. [facility] [place] [facility] Work Phone: Evaluation note Note Date & Type Note Facility documented in this encounter [facility] Work Phone: Instructions Note Date & Type Note Facility [facility] [place] [facility] Work Phone: Summary Purpose Family History No Family History Records FoundThere may be information available, but it has not been provided by the sender.There may be information available, but it has not been provided by the sender.No Family History Records FoundNo Family History Records FoundNo Family History Records Found Advance Directives No Advanced Directives Records FoundThere may be information available, but it has not been provided by the sender.There may be information available, but it has not been provided by the sender.No Advanced Directives Records FoundNo Advanced Directives Records FoundNo Advanced Directives Records Found Chief Complaint Chief Complaint Description Start Date . 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/29/2021 Preliminary chief co mplaint data, not yet signed by the author as of Chief Complaint Description Start Date left cheek post irrigation a nd debridement and delayed closure surgical defect and left cheek with cervical facial flap on 05/29/2021 Preliminary chief co mplaint data, not yet signed by the author as of Reason for Referral * cystitiscystitis Additional Source Comments <item><item><item><item> Privacy Markings (unrecogniz ed section and content) Section Author: Kirsten Stuart PROHIBITION ON REDISCLOSURE OF CONFIDENTIAL INFORMATION This notice accompanies a disclosure of information concerning a client made to you with the consent of such client. Section Author: Kirsten Stuart PROHIBITION ON REDISCLOSURE OF CONFIDENTIAL INFORMATION This notice accompanies a disclosure of information concerning a client made to you with the consent of such client. Section Author: Kirsten Stuart PROHIBITION ON REDISCLOSURE OF CONFIDENTIAL INFORMATION This notice accompanies a disclosure of information concerning a client made to you with the consent of such client. Section Author: Kirsten Stuart PROHIBITION ON REDISCLOSURE OF CONFIDENTIAL INFORMATION This notice accompanies a disclosure of information concerning a client made to you with the consent of such client. Source Comments (unrecognize d section and content) In the event this informatio n is protected by the Federal Confidentiality of Alcohol and Drug Abuse Patient Records regulations: The Federal rules restrict any use of the information to criminally investigate or prosecute any alcohol or drug abuse patient.[facility] Care Teams (unrecognized sec tion and content) Employment Law Attorney Relationship Specialty Start Date End Date Won Masters MD [address] [place] [address] [address] [place] [address] PCP - General Obstetrics and Gynecology 01/29/23 INFORMATION SOURCE (unrecogn ized section and content) DATE CREATED AUTHOR AUTHOR'S ORGANIZ ATION 04/16/2022 [facility] DATE CREATED AUTHOR AUTHOR'S ORGANIZ ATION 10/08/2022 [facility] DATE CREATED AUTHOR AUTHOR'S ORGANIZ ATION 01/30/2023 [facility] Reason for Visit (unrecogniz ed section and content) Reason For Visit Description Start Date Postop - 1st visit Preliminary reason f or visit data, not yet signed by the author as of left cheek post irrigation a nd debridement and delayed closure surgical defect and left cheek with cervical facial flap on 05/29/2021 Reason Comments UTI URGENCY, DYSURIA X 1 DAY FOR RECORDS PERTAINING TO PATIENTS WHO ARE OR HAVE BEEN ENROLLED IN A CHEMICAL DEPENDENCY/SUBSTANCEABUSE PROGRAM, SOME INFORMATION MAY BE OMITTED. This clinical summary was aggregated from multiple sources. Caution should be exercised in using it in the provision of clinical care. This summary normalizes information from multiple sources, and as a consequence, information in this document may materially change the coding, format and clinical context of patient data. In addition, data may be omitted in some cases. CLINICAL DECISIONS SHOULD BE BASED ON THE PRIMARY CLINICAL RECORDS. [employer] provides no warranty or guarantee of the accuracy or completeness of information in this document.
== END | disposition home or self-care (01) ==
LOC: SL 19:39
PROVIDERS: PCP Family Medicine; Referring Provider Nurse Practitioner Acute Care; Visit Provider Nurse Practitioner Acute Care
DX: G47.10 Hypersomnia, unspecified (principal)
CPT/HCPCS: 95810

== ENCOUNTER → 2023-06-21 | Outpatient (CLI) | payer MEDICARE, OTHER, SELFPAY ==
--- NOTE | 2023-06-21 16:43 | US_ITS ---
STUDY: RENAL ULTRASOUND - COMPLETE REASON FOR EXAM: Female, 73 years old. UTI TECHNIQUE: Ultrasound evaluation of the kidneys was performed with real-time and static eastman-scale imaging. COMPARISON: None. FINDINGS: RIGHT KIDNEY: Normal location of the right kidney, which is normal in size. The right kidney measures 10.2 cm. There is a normal cortex of the right kidney. The renal cortex measures 1.1 cm. Tiny (less than 5 mm) echogenic focus in the cortex of the right kidney of doubtful significance. There are no right renal calculi. There is no right hydronephrosis. DISTAL RIGHT URETER: There is non-visualization of the distal right ureter. There is no demonstrated right ureterovesical junction calculus. There is a visualized right ureteral jet. LEFT KIDNEY: Normal location of the left kidney, which is normal in size. The left kidney measures 10.0 cm. There is a normal cortex of the left kidney. The renal cortex measures 0.5 cm. There is no left renal mass or cyst. There are no left renal calculi. There is no left hydronephrosis. DISTAL LEFT URETER: There is non-visualization of the distal left ureter. There is no demonstrated left ureterovesical junction calculus. There is a visualized left ureteral jet. BLADDER: The distended urinary bladder has a volume of 48 ml. The empty urinary bladder has a volume of 11 ml. There is a normal wall thickness of the distended urinary bladder. There is no demonstrated mass within the urinary bladder. There are no demonstrated bladder calculi. US/Kidney and Bladder IMPRESSION: No hydronephrosis to suggest obstruction. Electronically Signed: Uche Gusman MD at 22:46 EDT ,
== END | disposition home or self-care (01) ==
LOC: US 16:43
PROVIDERS: PCP Family Medicine; Referring Provider Urology; Visit Provider Urology
DX: N39.0 Urinary tract infection, site not specified (principal)
CPT/HCPCS: 76770

== ENCOUNTER 2023-11-17 15:00 | Outpatient (CLI) | payer MEDICARE, OTHER, SELFPAY ==
[2023-11-17 17:29] LABS: Hematocrit 42.8 % (37-47); Hemoglobin 13.7 g/dL (12.0-15.0); Mean Corpuscular Hgb 28.8 pg (27.0-32.0); Mean Corpuscular Volume 90.1 fL (81-99); Mean Platelet Vol. 12.3 fl (6.2-12.0); Platelet Count 203 K/mm3 (150-450); RBC Distribution Width CV 13.1 % (11.6-14.6); RBC Distribution Width SD 42.8 fl (35.1-43.9); Red Blood Count 4.75 M/mm3 (4.2-5.4); White Blood Count 10.5 K/mm3 (4.4-11.0)
[2023-11-17 18:07] LABS: Vitamin B12 336 pg/mL (211-911); Vitamin D,25 Hydroxy 65.1 ng/mL
[2023-11-17 18:12] LABS: Anion Gap 5 (5-15); BUN 23 mg/dL (7-18); BUN/Creat Ratio 19.2 RATIO (10-20); Calcium,Total 9.9 mg/dL (8.5-10.1); Chloride 107 mmol/L (98-107); Cholesterol 190 mg/dL (200); EST Glomerular Filtration Rate 47 mL/min (>60); Est Glom Filt Rate - Afr Amer 56 mL/min (>60); Ferritin 353 ng/mL (8-252); Glucose 67 mg/dL (74-106); High Density Lipoprotein 61 mg/dL; Iron 82 ug/dL (50-170); Iron Binding Capacity,Total 304 ug/dL (250-450); Potassium 3.5 mmol/L (3.5-5.1); Sodium Level 141 mmol/L (136-145); Triglycerides 159 mg/dL; Very Low Density Lipoprotein 32 mg/dL (5-40)
[2023-11-17 18:29] LABS: Hemoglobin A1c 5.1 % (3.8-5.6)
== END 2023-11-17 23:59 | disposition home or self-care (01) ==
LOC: MTLAB 15:02
PROVIDERS: PCP Family Medicine; Referring Provider Family Medicine; Visit Provider Family Medicine
DX: R79.89 Other specified abnormal findings of blood chemistry (principal); E53.8 Deficiency of other specified B group vitamins; E03.9 Hypothyroidism, unspecified; R79.82 Elevated C-reactive protein (CRP); R73.01 Impaired fasting glucose; I10 Essential (primary) hypertension; E55.9 Vitamin D deficiency, unspecified
CPT/HCPCS: 36415; 80048; 80061; 82306; 82607; 82728; 83036; 83540; 83550; 84439; 84443; 85027; 86140

== ENCOUNTER → 2023-12-20 | Outpatient (CLI) | payer MEDICARE, OTHER, SELFPAY ==
--- NOTE | 2023-12-20 13:08 | BI_ITS ---
MAMMOGRAPHY - BILATERAL SCREENING 3-D TOMOSYNTHESIS REASON FOR EXAM: Female, 73 years old. SCREENING PERTINENT HISTORY: No significant family history. TECHNIQUE: 2-D mammograms and 3-D Tomosynthesis of the breast (s) were performed. CAD was performed. COMPARISON: 12/17/2022 FINDINGS: The breast composition is composed of scattered fibroglandular density. Scattered benign calcifications are seen. No dense spiculated masses or suspicious microcalcifications are identified. No architectural distortion is identified. There is no skin thickening or retraction. There has been no significant change since the prior study. BI/SCRN MAMM (CAD)W/ALIYA BILAT IMPRESSION: No mammographic signs of malignancy. Routine yearly mammograms recommended. ASSESSMENT CATEGORY: BIRADS Category 1: Negative. A letter regarding these results will be sent to the patient by the facility within 30 days. FOLLOW UP RECOMMENDATION: Yearly follow up mammogram recommended. (A) Approximately 10% of breast cancers are not detected by mammography. A normal mammogram should not delay biopsy of a clinically suspicious abnormality. Electronically Signed: Uche Gusman MD at 14:19 EDT ,
== END | disposition home or self-care (01) ==
LOC: OPBI 13:06
PROVIDERS: PCP Family Medicine; Referring Provider Family Medicine; Visit Provider Family Medicine
DX: Z12.31 Encounter for screening mammogram for malignant neoplasm of breast (principal)
CPT/HCPCS: 77063; 77067

== ENCOUNTER → 2024-01-19 | Outpatient (CLI) | payer MEDICARE, OTHER, SELFPAY | END | disposition home or self-care (01) | LOC: PSN 09:18 | PROVIDERS: PCP Family Medicine; Referring Provider Family Medicine; Visit Provider Family Medicine | DX: J84.10 Pulmonary fibrosis, unspecified (principal); R06.09 Other forms of dyspnea | CPT/HCPCS: 94060; 94726; 94729 ==

== ENCOUNTER → 2024-01-21 | Outpatient (CLI) | payer MEDICARE, OTHER, SELFPAY ==
--- NOTE | 2024-01-21 06:43 | ECHOCS_ITS ---
Reason For Study: DYPNEA Procedure This was a 2D Doppler, Color Flow transthoracic echocardiogram. The study was technically difficult. Contrast injection was performed. Exam performed in department. Left Ventricle Normal LV size. The estimated ejection fraction is 60 %. No evidence for diastolic dysfunction. Right Ventricle Normal RV size. Normal systolic function. Atria The left and right atria are normal. No doppler evidence for ASD. Mitral Valve There is no mitral valve stenosis. Mild (1+) mitral valve insufficiency. Tricuspid Valve There is no tricuspid stenosis. Mild tricuspid valve insufficiency. Unable to estimate RV systolic pressure due to insufficient tricuspid regurgitant envelope. Aortic Valve Aortic sclerosis, no stenosis. Trisinus/trileaflet aortic valve. There is no aortic stenosis. No aortic valve insufficiency. Pulmonic Valve There is no pulmonic valvular stenosis. No pulmonic valve insufficiency. Great Vessels Normal aortic root. Pericardium/Pleural No pericardial effusion. Medication Diluted definity 1ml given slow IV push to enhance endocardial definition. MMode/2D Measurements & Calculations LVIDd: 5.1 cm IVSd: 0.94 cm Ao root diam: 2.5 cm LVIDs: 3.0 cm LVPWd: 0.69 cm FS: 41.1 % LAV(MOD-bp): 52.3 ml LVAd ap4: 27.5 cm2 SV(MOD-sp4): 50.2 ml LAV(MOD-bp) Indexed: 26.1 ml/m2 LVLd ap4: 7.3 cm SI(MOD-sp4): 25.0 ml/m2 LAV(MOD-sp2): 36.3 ml EDV(MOD-sp4): 86.4 ml LAV(MOD-sp4): 66.5 ml EDV(sp4-el): 88.3 ml LVAs ap4: 16.5 cm2 LVLs ap4: 6.1 cm ESV(MOD-sp4): 36.2 ml ESV(sp4-el): 37.8 ml EF(MOD-sp4): 58.1 % EF(sp4-el): 57.2 % SV(sp4-el): 50.5 ml LA A4 area: 21.4 cm2 LA dimension(2D): 3.9 cm RA A4 area: 7.9 cm2 Time Measurements MV dec time: 0.22 sec Doppler Measurements & Calculations MV E max david: 57.4 cm/sec Lat Peak E' David: 10.4 cm/sec Med Peak E' David: 5.8 cm/sec MV A max david: 63.2 cm/sec E/E' lat: 5.5 E/E' med: 9.9 MV E/A: 0.91 MV V2 max: 68.1 cm/sec MV dec slope: 257.1 cm/sec2 Ao V2 max: 100.5 cm/sec MV max P.9 mmHg Ao max P.0 mmHg MV V2 mean: 39.3 cm/sec Ao V2 mean: 68.5 cm/sec MV mean P.71 mmHg Ao mean P.2 mmHg MV V2 VTI: 23.6 cm Ao V2 VTI: 26.8 cm AV (velocity ratio): 0.84 LV V1 max: 85.0 cm/sec PA V2 max: 75.6 cm/sec LV V1 max P.9 mmHg PA V2 mean: 51.5 cm/sec LV V1 mean P.6 mmHg LV V1 mean: 60.0 cm/sec LV V1 VTI: 22.5 cm ECHO/Echo Complete W/ Contrast Interpretation Summary The estimated ejection fraction is 60 %. No evidence for diastolic dysfunction. Mild (1+) mitral valve insufficiency. Ordering Physician: Vamshi Arriola Referring Physician: Vamshi Arriola Performed By: Kristie Greene and Student
--- NOTE | 2024-01-24 10:45 | STRESSREP ---
Stress Test Report Date: 01/21/2024 Procedure: Pharmacologic stress nuclear imaging study Indications: Dyspnea on exertion Consent: Per the patient Procedure: The patient underwent pharmacologic (Regadenoson) evaluation with a peak heart rate of 75 beats per minute (51%predicted maximal heart rate) and a peak blood pressure of 126/78 mmHg. The baseline ECG demonstrated normal sinus rhythm. EKG during lexiscan infusion revealed no significant ischemic changes. EKG post infusion revealed no significant ischemic changes [There were no significant cardiac dysrhythmias pretest, during pharmacologic infusion, or recovery]. [There was no complaint of chest discomfort during pharmacologic infusion or recovery]. The examination was discontinued secondary to completion of protocol. Impression: 1. Lexiscan stress test test is negative for Lexiscan infusion induced EKG changes of ischemia. 2. Lexiscan stress test test is negative for Lexiscan infusion induced chest pain. 3. Results of the nuclear portion of the test is as below Myocardial perfusion imaging study: Technique: The patient was injected with 15 millicuries of technetium 99m Cardiolite and subsequently rest SPECT Cardiolite nuclear imaging was obtained in the horizontal long, vertical long, and short axis views. The patient underwent pharmacologic [Regadenoson 0.4mg] evaluation. Please see above for details. The patient was injected with 45 millicuries of technetium 99m Cardiolite and subsequently stress SPECT Cardiolite nuclear imaging was obtained in the horizontal long, vertical long, and short axis views. A gated Cardiolite study at peak stress was obtained. Interpretation: Rest and stress SPECT Cardiolite nuclear imaging status post realignment, normalization, and attenuation correction demonstrate no evidence of significant ischemia or infarction. Gated images reveal no significant regional wall motion abnormalities. The reported LVEF is greater than 70%. Impression: 1. There is no evidence of significant ischemia or infarction. 2. Estimated ejection fraction is greater than 70%. This note was generated with [employer] software. It may contain incorrect words, spelling, and punctuation that were not noted in checking the note before signing.
== END | disposition home or self-care (01) ==
LOC: CVS 06:40
PROVIDERS: PCP Family Medicine; Referring Provider Family Medicine; Visit Provider Family Medicine
DX: R06.09 Other forms of dyspnea (principal); J84.10 Pulmonary fibrosis, unspecified
CPT/HCPCS: 78452; 93017; 93306; A9500; Q9957; A4216; C8929; J2785

== ENCOUNTER → 2024-08-15 | Outpatient (CLI) | payer MEDICARE, OTHER, SELFPAY ==
[2024-08-15 20:40] LABS: Anion Gap 10 (5-15); BUN 25 mg/dL (4-19); BUN/Creat Ratio 15.9 RATIO (10-20); Calcium,Total 9.8 mg/dL (7.6-11.0); Carbon Dioxide 26.5 mmol/L (21.0-32.0); Chloride 103 mmol/L (98-108); Creatinine, Serum 1.58 mg/dL (0.70-1.20); EST Glomerular Filtration Rate 34 (>60); Glucose 109 mg/dL (70-99); Sodium Level 140 mmol/L (133-145)
[2024-08-15 21:22] LABS: Vitamin B12 > 4000 pg/mL (180-914); Vitamin D,25 Hydroxy 47.1 ng/mL (30-100)
== END | disposition home or self-care (01) ==
LOC: MTLAB 14:52
PROVIDERS: PCP Family Medicine; Referring Provider Family Medicine; Visit Provider Family Medicine
DX: N18.30 Chronic kidney disease, stage 3 unspecified (principal); E55.9 Vitamin D deficiency, unspecified; E03.9 Hypothyroidism, unspecified
CPT/HCPCS: 36415; 80048; 82306; 82607; 84443